=== PATIENT | female | born 1965 | race Caucasian/White ===

== ENCOUNTER 2024-04-20 09:16 | Outpatient (RCR) | payer OTHER, MEDICAID, SELFPAY ==
[2024-04-20 09:50] VITALS: BP 156/69
[2024-04-20] MEDS: RECLAST 100 IV (09:53)
== END 2024-04-21 09:39 | disposition home or self-care (01) ==
LOC: OID 09:16
PROVIDERS: ATTENDING PHYSICIAN Internal Medicine Endocrinology, Diabetes & Metabolism; FAMILY PHYSICIAN Family Medicine
DX: M81.0 Age-related osteoporosis without current pathological fracture (principal)
CPT/HCPCS: 96365; J3489

== ENCOUNTER 2024-06-18 14:34 | Inpatient (IN) | payer OTHER, MEDICAID, SELFPAY ==
[2024-06-10 20:13] VITALS: BP 169/73
[2024-06-10 20:46] LABS: % Basophils 0.3 % (0-2); % Eosinophils 0.7 % (0-6); % Immature Granulocytes 0.4 % (0-0.5); % Lymphocytes 48.8 % (20.5-51.1); % Monocytes 8.6 % (1.7-9.3); % Neutrophils 41.2 % (42.2-75.2); Absolute Eosinophils 0.1 10^3/uL (0-0.7); Absolute Lymphocytes 3.7 10^3/uL (1.2-3.4); Absolute Monocytes 0.7 10^3/uL (0.1-0.6); Absolute Neutrophils 3.1 10^3/uL (1.4-6.5); Hematocrit 29.7 % (37.0-47.0); Hemoglobin 9.9 g/dL (12.0-16.0); Mean Corp Hgb Conc. 33.3 g/dL (33.0-37.0); Mean Corpuscular Hgb 29.2 pg (27.0-31.0); Mean Corpuscular Volume 87.6 fL (81.0-99.0); Mean Platelet Volume 10.7 fL (7.4-10.4); Nucleated Red Blood Cells % 0 %; Platelet Count 117 10^3/uL (130-400); Red Blood Cell Count 3.39 10^6/uL (4.20-5.40); Red Cell Dist. Width 13.7 % (11.5-14.5); White Blood Cell Count 7.6 10^3/uL (4.8-10.8)
[2024-06-10 20:56] LABS: COVID-19 Antigen Positive (Negative)
--- NOTE | 2024-06-10 21:07 | ED.GENMED ---
History of Present Illness
General
Chief Complaint: Cold/Flu/URI Symptoms
Source: family ([id number])
Exam Limitations: other (MR, Cerebral palsey)
Time Seen by Provider: 06/10/24 20:54
History of Present Illness
History of Present Illness:
This is a 59 year old female that is brought in by her [id number]. States that she had diagnosis of COVID on Saturday. States that she keeps falling and has fallen twice today. States that she can't do steps and that her balance is off.
Qnswso-wc-gng states that she and her are both sick and they can't take care of her. States that she had a fever but they have been giving her Cough and cold. Denies any chills, chest pain, SOB, abd pain, nausea, vomiting, diarrhea,
headache, dizziness, urinary burning.
Past History
Past History
ED Past Medical History: GERD, HTN, Hypercholesterolemia, IDDM, Seizures, Other (CKD 3, microalbuminuria,, Cerebral palsy, Pneumothorax, Interpretively blind, Mentally challenged, Neuropathy, Anemia, Vit D def, ) and Other (Intellectual disability
IQ 50-70)
ED Past Surgical History: Appendectomy and Other (Cataracts, ); Negative Cardiac
Social History
Tobacco: Non-smoker
Alcohol: None
Drug: None
Personal: Single
Living: with family (Brother and pjzcdr-[id number])
Employment: Not employed
Family History
Family History: Diabetes
Review of Systems
Review of Systems
All Other Systems: ROS reviewed and negative except as documented in HPI and ROS
Constitutional: Reports fever; Denies chills
EENT: Reports no symptoms
Respiratory: Reports no symptoms; Denies cough or trouble breathing
Cardiac: Reports no symptoms; Denies chest pain
ABD/GI: Reports no symptoms; Denies abdominal pain, nausea, vomiting or diarrhea
: Reports incontinence; Denies dysuria, frequency or urgency
Musculoskeletal: Reports no symptoms
Skin: Reports no symptoms
Neurological: Reports other (Frequency falls); Denies dizzy or headache
Psychiatric: Reports no symptoms
Phy Exam
General Physical Exam
General Presentation: no apparent distress
General age: appears stated age
General Skin: warm and dry
General Habitus: normal
General Mental: usual mental status
General Hydration: appears well hydrated
ENT Exam
ENT Exam: TM's normal, pharynx normal and neck supple
Cardiovascular Exam
Cardiovascular Exam: regular rate/rhythm and normal peripheral pulses
Pulmonary Exam
Pulmonary Exam: lungs clear, no respiratory distress, no rales, chest non tender, no crackles, no rhonchi, no wheezing and no cough
Gastrointestinal Exam
Gastrointestinal Exam: normal bowel sounds, non tender, soft, no organomegaly, no pulsatile mass and non distended
Musculoskeletal Exam
Musculoskeletal Exam: full ROM and edema (+1 pitting edema of lower legs)
Skin Exam
Skin Exam: normal color, warm/dry, no rash and no petechia
Psychiatric Exam
Psychiatric Exam: normal mood/affect
Course
Orders/Labs/Results
Orders:
Orders
06/10/24 Dinner
Regular
At Your Request: Limited Participation
06/10/24 20:31
COVID-19 Antigen Urgent
Source: Nasal Swab
Complete Blood Count/With Diff Urgent
Comprehensive Metabolic Panel Urgent
06/10/24 21:09
Urinalysis Reflex To Culture Urgent
Date Specimen was Collected: 06/10/24
Time Specimen was Collected: 21:08
06/10/24 21:20
0.9% Sodium Chloride 1000 ml [Nss] 1,000 ml IV BOLUS
06/10/24 21:36
Admit/Transfer Patient As Directed
Co-Sign Provider:
Level of Care: Observation services
Assign to:: Medical/Surgical
Physician / Group: veldanda
Diagnosis: covid
Code Status As Directed
Resuscitation Status: Full Code
PRN Pain Medication Management As Directed
May give lesser potent ordered pain med per pt: Yes
preference::
Protocol:: Medication orders for pain may be administered in a
manner that supports deferring to patient preference
when the pt is:
- Requesting an ordered lesser potent pain medication.
Least to most potent pain medications are defined
as: acetaminophen < NSAID < tramadol < opioids
(morphine, oxycodone, hydromorphone).
- Requesting a lesser dose of the same medication IF
ORDERED.
- Requesting a less intrusive route of administration
if both routes are prescribed by the provider (PO <
IV).
06/10/24 22:00
Flush (0.9% Sodium Chloride) [Flush (Nss)] See Dose Instructions IV PER PROTOCOL
06/10/24 22:13
Acetaminophen [Tylenol] 650 mg PO Q4HPRN PRN
Clobazam (Non-Form) [Onfi] 10 mg PO HS
Dextrose 50%-Water [Dextrose 50% Syringe] 12.5 grams IV [id number] PRN
Glucagon [GlucaGen] 1 mg IM PRN PRN
Rosuvastatin Calcium [Crestor] 20 mg PO HS
06/10/24 22:13
Activity As Directed
Activity Level: As Tolerated
Bedside Glucose Monitoring As Directed
Frequency: AC&HS
Additional Instructions:: Change to q6h if pt on TPN, tube feeding or not eating
Orthostatic Vital Signs As Directed
Orthostatic VS Frequency: Daily
Vital Signs As Directed
Frequency: Per unit guidelines
DX Deep Vein Thrombosis Video Routine
06/11/24 06:00
Complete Blood Count/With Diff IN AM
Comprehensive Metabolic Panel IN AM
Glycohemoglobin (HgbA1c) IN AM
06/11/24 07:30
Insulin Aspart Corrective Low [Novolog Flexpen-Low Resistance] See Protocol SC AC
06/11/24 08:00
Carbamazepine Extended Release [Tegretol Xr (Extended Release)] 300 mg PO BID
Cholecalciferol (Vitamin D3) [VITAMIN D3 (cholecalciferol)] 50 mcg PO DAILY
Cyanocobalamin [Vitamin B-12] 1,000 mcg PO DAILY
Divalproex Delayed Rel. 12 Hr [Depakote (12 Hr Release)] 500 mg PO BID
Heparin 5,000 units SC Q12
Pantoprazole [Protonix] 40 mg PO DAILY
Ramipril [Altace] 2.5 mg PO DAILY
Abnormal Lab Results
06/10/24
20:31
RBC 3.39 L 10^6/uL
(4.20-5.40)
Hgb 9.9 L g/dL
(12.0-16.0)
Hct 29.7 L %
(37.0-47.0)
Plt Count 117 L 10^3/uL
(130-400)
MPV 10.7 H fL
(7.4-10.4)
Absolute Lymphs (auto) 3.7 H 10^3/uL
(1.2-3.4)
Absolute Monos (auto) 0.7 H 10^3/uL
(0.1-0.6)
Neutrophils % 41.2 L %
(42.2-75.2)
Sodium 131 L mmol/L
(135-145)
BUN 25 H mg/dl
(7-17)
Creatinine 1.2 H mg/dL
(0.6-1.0)
Albumin 3.1 L g/dl
(3.5-5.0)
SARS-CoV-2 Antigen Positive A
(Negative)
06/10/24 20:31
06/10/24 20:31
H/H slightly low. Plt low. COVID positive. Sodium slightly low, Dehydration. Urine negative for infection.
Vital Signs
Initial and Last Documented VS:
Initial Vital Signs
Temp Pulse Resp BP Pulse Ox
97.3 F 70 20 169/73 98
06/10/24 20:13 06/10/24 20:13 06/10/24 20:13 06/10/24 20:13 06/10/24 20:13
Last Documented Vital Signs
Temp Pulse Resp BP Pulse Ox
97.3 F 84 18 192/51 100
06/10/24 23:00 06/10/24 23:00 06/10/24 23:00 06/10/24 23:00 06/10/24 23:00
MDM/Problems Addressed
Differential Diagnosis Includes:
COVID, Weakness, UTI
MDM/Problems Addressed:
This is a 59 year old female that comes in by her juejgp-tx-pjz. Inwdks-sb-krb states that the patient was diagnosed with COVID on Saturday. States that she has fallen twice and that the one time she fell out of her chair into their sofa. States that
she is unable to do steps and stays down stairs by herself. States that she can't take care of her any more.
Will check labs and admit. Hospitalist notified.
Chronic conditions affecting care:
Cerebral palsy, MR
Acute Exacerbation and/or Progression of Chronic Illness:
MR, Cerebral palsy.
*Pulse Oximetry
Patient hypoxic: no
*EKG
Interpreted by ED Provider?: NA
Rate: EKG- N/A
*Facility Maintenance Manager Interpretation
Rate: Facility Maintenance Manager- N/A
*Critical Care Note
Total Time (30-74mins, 75-104mins- exclusive of procedures): Not Applicable
ED Attending Note
-
Portions of this chart may have been created with voice recognition software.� Occasional wrong word or��sound alike� substitutions may have occurred due to the inherent limitations of voice recognition software.
Discharge Plan
Departure
Patient Disposition: Admit
Date of Disposition: 06/10/24
Time of Disposition: 21:19
Admit to: Med/Surg
Presentation/result/management discussed w/ accepting MD/DO: Hospitalist
Patient with high blood pressure during this ER visit?: Yes
Condition: Good
Covid-19: Confirmed COVID-19
Discharge Problem:
Frequent falls, COVID, Weakness
Interventions
Interventions:
*Risk Screen - Suicide Last Done: 06/10/24 22:18
*General Assessment Last Done: 06/10/24 21:02
*Neglect/Abuse Screening Last Done: 06/10/24 21:02
ED- Fall Risk Assessment Last Done: 06/10/24 21:02
*ED COVID-19 Vaccine History Last Done: 06/10/24 21:02
*Nursing Disposition Last Done: 06/10/24 21:55
ED- Pulmonary Assessment Last Done: 06/10/24 21:02
Discharge Date and Time
Discharge Date/Time: 06/10/24 22:08
[2024-06-10 21:11] LABS: ALT (SGPT) 16 U/L (0-35); AST (SGOT) 35 U/L (14-36); Albumin 3.1 g/dl (3.5-5.0); Alkaline Phosphatase 125 U/L (38-126); Blood Urea Nitrogen 25 mg/dl (7-17); Calcium 8.4 mg/dl (8.4-10.2); Carbon Dioxide 26 mmol/L (22-30); Chloride 100 mmol/L (98-107); Glucose 84 mg/dl (70-99); Potassium 4.7 mmol/L (3.5-5.1); Sodium 131 mmol/L (135-145); Total Bilirubin 0.3 mg/dl (0.2-1.3); Total Protein 6.5 g/dl (6.3-8.2); eGFR 52.14
[2024-06-10 21:26] LABS: Urine Albumin Negative (Neg - Trace); Urine Bilirubin Negative (Negative); Urine Character Clear (Clear); Urine Color Yellow; Urine Glucose Negative (Negative); Urine Ketone Negative (Negative); Urine Leukocyte Negative (Negative); Urine Nitrite Negative (Negative); Urine Occult Blood Negative (Negative); Urine Urobilinogen 1+ (Neg - 1+)
[2024-06-10] MEDS: NSS 1000 IV (21:26)
--- NOTE | 2024-06-10 21:42 | HPS.HSE ---
Family Physician
-
Family Physician: Marcelino Kuhn
Chief Complaint
-
fever, falls
History of Present Illness
59-year-old female past medical history of GERD, hypertension, hypercholesteremia, diabetes, seizures, CKD stage III, cerebral palsy presenting with ifrmjz-pb-oin for multiple falls since patient was diagnosed with COVID on Saturday. Her balance is
off and she feels dizzy. Patient has been having sore throat, runny nose and cough and fever for the past 2 days. Tzbnhv-xf-mfa states that she and her are also positive for COVID and they had symptoms a few days prior to the patient and
they cannot take care of her. Patient has had fever but no chills, chest pain, shortness of breath, abdominal pain, nausea vomiting or diarrhea or headache or dizziness or urinary symptoms.
Patient does not smoke or drink alcohol or use drugs.
Medical History
Past Medical History
Past Medical History: Reports Other (GERD, hypertension, hypercholesteremia, diabetes, seizures, CKD stage III, cerebral palsy )
Past Surgical History: Reports None
Social History
Tobacco: Non-smoker
Alcohol: None
Drug: None
Family History
Family History: Not pertinent
Allergies / Home Medications
Allergies reflects when Allergies were last updated in [facility].
Home Medications with original date entered in [facility]
Allergy/Medication List:
Allergies
Allergy/AdvReac Type Severity Reaction Status Date / Time
phenobarbital Allergy Severe Anaphylaxis Verified 06/10/24 20:13
Home Medications
cholecalciferol (vitamin D3) 50 mcg (2,000 unit) tablet 2,000 units PO DAILY Supplement 02/06/20
omeprazole 20 mg capsule,delayed release 20 mg PO DAILY Gastrointestinal Issue 02/06/20
insulin degludec 100 unit/mL (3 mL) subcutaneous pen (Tresiba FlexTouch U-100 insulin) 6 unit SQ HS Diabetes 01/16/22
metformin 500 mg tablet,extended release 24 hr 1,000 mg PO QPM Diabetes 01/16/22
rosuvastatin 20 mg tablet 20 mg PO HS High Cholesterol 01/16/22
cyanocobalamin (vitamin B-12) 1,000 mcg tablet 1,000 mcg PO DAILY Supplement 04/27/23
clobazam 10 mg tablet (Onfi) 10 mg PO HS 04/20/24
divalproex 500 mg tablet,delayed release (Depakote) 500 mg PO BID 04/20/24
insulin lispro 100 unit/mL subcutaneous pen 1 sliding scale dose SC DIRECTED 04/20/24
carbamazepine 300 mg capsule,extended release [id number] 300 mg PO BID 06/10/24
ramipril 2.5 mg capsule 2.5 mg PO DAILY 06/10/24
Review of Systems
-
History Source: Patient
A 12 point ROS was completed and negative except as noted: Yes
Constitutional: Reports No Symptoms
EENT: Reports See HPI
Respiratory: Reports See HPI
Cardiac: Reports No Symptoms
Abdomen/GI: Reports No Symptoms
: Reports No Symptoms
Musculoskeletal: Reports No Symptoms
Skin: Reports No Symptoms
Neurological: Reports See HPI
Endocrine: Reports No Symptoms
Hematologic/Lymphatic: Reports No Symptoms
Psych: Reports No Symptoms
Physical Exam
Vital Signs
Vital Signs
Temp Pulse Resp BP Pulse Ox
97.3 F 70 20 169/73 97
06/10/24 20:13 06/10/24 20:13 06/10/24 20:13 06/10/24 20:13 06/10/24 21:02
Physical Exam
General: Well Developed, Well Nourished and No Apparent Distress
HEENT: NormoCephalic, Moist mucous membranes and Atraumatic
Respiratory: Clear
Cardiac: S1/S2 and Regular Rhythm; No Murmur or Rub
GI: Soft, Non Tender, Non Distended and Normal Bowel Sounds; No Organomegaly
Rectal: Deferred by Provider
Musculoskeletal: No Clubbing, No Cyanosis and No Edema
Skin: No Rash
Neuro: Nonfocal/grossly intact
Laboratory Results
-
06/10/24 20:31
06/10/24 20:31
Laboratory Results
Total Bilirubin 0.3 mg/dl (0.2-1.3) 06/10/24 20:31
AST 35 U/L (14-36) 06/10/24 20:31
ALT 16 U/L (0-35) 06/10/24 20:31
Alkaline Phosphatase 125 U/L (38-126) 06/10/24 20:31
Data Reviewed
-
Lab Data: Labs Reviewed by me
Old Records: Reviewed
Impression/Plan
-
IMPRESSION:
PLAN:
# Ambulatory dysfunction/falls/dizziness secondary to COVID
-Patient not hypoxic
-IV fluids given
-Check orthostatic vitals
-PT/OT
# Mild hyponatremia secondary to decreased p.o. intake
-Monitor with IV fluids given
Progressive dementia
Cerebral palsy
Seizure history
-Continue Depakote, carbamazepine, clobazam
Essential hypertension
-Continue ramipril
Hypercholesterolemia
-Continue statin
GERD
-Continue omeprazole
Type 2 diabetes
-Hold metformin
-Insulin sliding scale
-Continue Tresiba 6 units
CKD 3
-Renal function at baseline
Chronic anemia
-Hemoglobin stable
Full code
DVT prophylaxis�heparin
Regular diet
[2024-06-10 22:55] LABS: Glucose - Point of Care 84 mg/dl (70-99)
[2024-06-10] MEDS: LANTUS 0.06 UNITS SC (22:55)
[2024-06-10 22:58] VITALS: BMI 27.0
[2024-06-10 23:00] VITALS: BP 192/51
[2024-06-10] MEDS: ONFI 10 MG PO (23:24)
[2024-06-10] MEDS: CRESTOR 20 MG PO (23:24)
--- NOTE | 2024-06-10 23:30 | PTCARENOTE ---
Pt received from ED via WC. Pivoted to bed w/assist without incident. Pt's JIL Graham answered admission questions. Plan of care discussed, oriented to surroundings. Full physical assessment documented (refer to worklist). Bed alarm active for
safety, Medsitter to be obtained. Respiratory illness precautions maintained. LAC INT partially removed by patient, removed at this time. OOB w/assist x1/RW to BR. Call gomez within reach, plan of care ongoing.
[2024-06-11 03:30] VITALS: BP 137/61
[2024-06-11 07:15] VITALS: BP 169/81
[2024-06-11 08:11] LABS: Glucose - Point of Care 141 mg/dl (70-99)
[2024-06-11] MEDS: HEPARIN 5000 UNITS SC ×2 (10:08→21:14)
[2024-06-11] MEDS: NOVOLOG FLEXPEN-LOW RESISTANCE SC (10:11)
[2024-06-11] MEDS: VITAMIN B-12 1000 MCG PO (10:12)
[2024-06-11] MEDS: PROTONIX 40 MG PO (10:12)
[2024-06-11] MEDS: VITAMIN D3 (cholecalciferol) 50 MCG PO (10:12)
[2024-06-11] MEDS: ALTACE 2.5 MG PO (10:12)
[2024-06-11] MEDS: DEPAKOTE (12 HR RELEASE) 500 MG PO ×2 (10:12→21:15)
[2024-06-11] MEDS: TEGRETOL XR (EXTENDED RELEASE) 300 MG PO ×2 (10:13→21:13)
[2024-06-11 11:21] LABS: ALT (SGPT) 17 U/L (0-35); AST (SGOT) 38 U/L (14-36); Albumin 3.3 g/dl (3.5-5.0); Alkaline Phosphatase 148 U/L (38-126); Blood Urea Nitrogen 22 mg/dl (7-17); Calcium 8.4 mg/dl (8.4-10.2); Carbon Dioxide 26 mmol/L (22-30); Chloride 101 mmol/L (98-107); Estimated Creatinine Clearance 48 ml/min; Glucose 220 mg/dl (70-99); Potassium 4.8 mmol/L (3.5-5.1); Sodium 133 mmol/L (135-145); Total Bilirubin 0.4 mg/dl (0.2-1.3); Total Protein 6.9 g/dl (6.3-8.2); eGFR > 60.00
[2024-06-11 11:34] LABS: % Basophils 0.3 % (0-2); % Eosinophils 0.3 % (0-6); % Immature Granulocytes 0.3 % (0-0.5); % Lymphocytes 37.5 % (20.5-51.1); % Monocytes 6.9 % (1.7-9.3); % Neutrophils 54.7 % (42.2-75.2); Absolute Lymphocytes 2.2 10^3/uL (1.2-3.4); Absolute Monocytes 0.4 10^3/uL (0.1-0.6); Absolute Neutrophils 3.2 10^3/uL (1.4-6.5); Hematocrit 33.2 % (37.0-47.0); Hemoglobin 11.3 g/dL (12.0-16.0); Mean Corpuscular Hgb 29.8 pg (27.0-31.0); Mean Corpuscular Volume 87.6 fL (81.0-99.0); Mean Platelet Volume 11.5 fL (7.4-10.4); Nucleated Red Blood Cells % 0 %; Platelet Count 107 10^3/uL (130-400); Red Blood Cell Count 3.79 10^6/uL (4.20-5.40); Red Cell Dist. Width 13.6 % (11.5-14.5); White Blood Cell Count 5.9 10^3/uL (4.8-10.8)
[2024-06-11 11:56] LABS: Glucose - Point of Care 242 mg/dl (70-99)
[2024-06-11 12:23] LABS: Glycohemoglobin (HgbA1c) 5.9 % (4.0-5.6)
[2024-06-11] MEDS: NOVOLOG FLEXPEN-LOW RESISTANCE 2 UNITS SC ×2 (14:01→17:40)
[2024-06-11 15:15] VITALS: BP 158/80
[2024-06-11 15:45] VITALS: BP 169/86; BP 195/94; PULSE 82; O2SAT 99
--- NOTE | 2024-06-11 15:52 | CM ---
Initial assessment completed with brother. Patient has lived with her brother and pavkpp-wi-nua for approximately the past 10-15 years. They live in a 2 story home with basement w 2 steps to enter. Patient can no longer navigate the stairs to the
2nd floor. The dining room on the 1st floor has been transformed into a bedroom for patient. There is a powder room on the 1st floor. Patient has a RW, Quad cane, SC. No in home services. She uses the quad cane. Patient has difficulty with her
vision and frequently bumps into things and has fallen frequently. She requires assistance with ADL's and more times than not misses the toilet and urinates and defecates on the floor next to the toilet. Patient has never has any psychiatric
hospitalizations. Pharmacy is [facility] in [place] and PCP is Dr. Marcelino Kuhn. Family would like patient to go to [facility] after discharge. They definitely do not want referrals to [facility]. Will need Order for Therapy evals
and will need insurance auth. Referral to [place] to be forwarded.
[2024-06-11 16:56] LABS: Glucose - Point of Care 342 mg/dl (70-99)
--- NOTE | 2024-06-11 17:06 | W.PN.HOSP.TC ---
Today's Communication/Plan
-
Physical therapy evaluation
Supportive care per
Discharge planning
Assessment / Plan
Assessment / Plan
Impression:
Admitted for ambulatory dysfunction, falls, reported dizziness secondary to COVID infection.
COVID infection mild, with no evidence of sepsis or hypoxia.
Hyponatremia sodium 131
Conditions prior to admission.
Cerebral palsy with intellectual disability
Seizure disorder
Essential hypertension.
Chronic kidney disease stage IIIb.
IDDM.
Hyperlipidemia
Plan:
Failure to thrive due to acute COVID infection
Mild COVID diagnosed on 06/08.
No clinical evidence of sepsis or hypoxia
No clear indication for antiviral therapy at this point.
Continue supportive care
Mild hyponatremia secondary to dehydration due to decreased p.o. intake
Sodium improves 131�133
Monitor oral intake
Wean off IV fluids if sufficient
Follow BMP
Cerebral palsy
Seizure history
-Continue Depakote, carbamazepine, clobazam
Essential hypertension
-Continue ramipril
Hypercholesterolemia
-Continue statin
GERD
-Continue omeprazole
Type 2 diabetes
-Hold metformin
-Insulin sliding scale
-Continue Tresiba 6 units
CKD 3
-Renal function at baseline
Chronic anemia
-Hemoglobin stable
Full code
DVT prophylaxis�heparin
Regular diet
Anticipated Discharge: 24 - 48 hours
Subjective/Interval History
-
Date of Service: June 11, 2024
Objective Data
-
Labs:
Laboratory Results
06/11/24 06/11/24 06/11/24
06:04 06:05 10:37
WBC Cancelled 5.9
Hgb Cancelled 11.3 L
Hct Cancelled 33.2 L
Plt Count Cancelled 107 L
Sodium Cancelled 133 L
Potassium Cancelled 4.8
Chloride Cancelled 101
Carbon Dioxide Cancelled 26
BUN Cancelled 22 H
Creatinine Cancelled 1.0
Glucose Cancelled 220 H
Calcium Cancelled 8.4
Total Bilirubin Cancelled 0.4
AST Cancelled 38 H
ALT Cancelled 17
Alkaline Phosphatase Cancelled 148 H
Vital Signs:
Vital Signs
Temp Pulse Resp BP Pulse Ox
97.7 F 79 18 158/80 99
06/11/24 15:15 06/11/24 15:15 06/11/24 15:15 06/11/24 15:15 06/11/24 15:15
I&O
06/10/24 06/11/24 06/12/24
06:59 06:59 06:59
Intake Total 120 / 120 600 / 600
Output Total 300 / 300
Balance -180 / -180 600 / 600
Physical Exam
-
General: Well Developed and No Apparent Distress
HEENT: Normocephalic, Atraumatic and Moist Mucous Membranes
Respiratory: Clear to Auscultation
Cardiac: Regular Rhythm and S1/S2; Negative Murmur, Rub or Gallop
GI: Soft, Nontender, Nondistended and Normal Bowel Sounds; Negative Organomegaly
Rectal: Deferred by Provider
Musculoskeletal: No Clubbing, No Cyanosis and No Edema
Skin: Negative Rash
Neuro: Nonfocal/Grossly Intact
[2024-06-11 18:34] LABS: Hepatitis C Antibody Negative (Negative)
[2024-06-11 21:39] LABS: Glucose - Point of Care 160 mg/dl (70-99)
[2024-06-11] MEDS: CRESTOR 20 MG PO (21:39)
[2024-06-11] MEDS: ONFI 10 MG PO (21:39)
[2024-06-11] MEDS: LANTUS 0.06 UNITS SC (21:39)
[2024-06-11 23:57] VITALS: BP 145/78
[2024-06-12 07:15] VITALS: BP 188/80
[2024-06-12 08:14] LABS: Glucose - Point of Care 114 mg/dl (70-99)
[2024-06-12] MEDS: NOVOLOG FLEXPEN-LOW RESISTANCE SC (08:19)
[2024-06-12 08:28] LABS: Blood Urea Nitrogen 25 mg/dl (7-17); Calcium 8.5 mg/dl (8.4-10.2); Carbon Dioxide 24 mmol/L (22-30); Chloride 102 mmol/L (98-107); Estimated Creatinine Clearance 48 ml/min; Glucose 117 mg/dl (70-99); Potassium 4.6 mmol/L (3.5-5.1); Sodium 133 mmol/L (135-145); eGFR > 60.00
[2024-06-12] MEDS: HEPARIN 5000 UNITS SC ×2 (08:43→20:53)
[2024-06-12] MEDS: VITAMIN D3 (cholecalciferol) 50 MCG PO (08:44)
[2024-06-12] MEDS: PROTONIX 40 MG PO (08:44)
[2024-06-12] MEDS: ALTACE 2.5 MG PO (08:44)
[2024-06-12] MEDS: DEPAKOTE (12 HR RELEASE) 500 MG PO ×2 (08:44→20:54)
[2024-06-12] MEDS: TEGRETOL XR (EXTENDED RELEASE) 300 MG PO ×2 (08:44→20:54)
[2024-06-12] MEDS: VITAMIN B-12 1000 MCG PO (08:44)
[2024-06-12 11:59] LABS: Glucose - Point of Care 257 mg/dl (70-99)
[2024-06-12] MEDS: NOVOLOG FLEXPEN-LOW RESISTANCE 3 UNITS SC (12:30)
[2024-06-12 13:54] VITALS: BP 122/88; BP 127/80; BP 137/71; PULSE 102; PULSE 73; PULSE 80
--- NOTE | 2024-06-12 14:23 | CON.MD ---
Consultation - Medical
-
patient seen chart reviewed . spoke with nursing and with cm. the patient is a 59 year old woman with cerebral palsy and intellectual disability who was brought to er with complaint of falling. she has hx of difficulty w gait and balance. she
has fx pelvis in the past. she was dx w dashaid this week. she is cared for by her brother lisbeth and his clara. brant was very pleasant and told me some about her family. she has lived for a few years with clara and lisbeth. she was in a bedroom
upstairs but was having difficulty navigating the stairs and the family moved her room to the first floor. according to cm and the er note, family feels they can no longer care for her and may be seeking parts counterman placement. cm tells me she has
already been accepted for [facility] [place] pending level two assessment and other paper work. the patient reports that she is happy. sleep and appetite are okay. she said she likes to eat. i asked her if she ever heard voices that
were not there and she said no. she also has not had thoughts of hurting herself. she likes to watch TV and color. she also had a deck of cards on her tray. she offered no complaints and did not seem unhappy at all.
past psych hx no hx of psychiatric admissions. this was verified by cm who spoke with family.
past medical hx cerebral palsy patient w hx frequent falls including pelvic fx. she has hx of gait disturbance likely further impacted by issues with visual interpretation. patient w hx dm including retinopathy, gerd sz hld htn (bp is elevated
at 118/80 today mild anemia (hgb 11.3) overweight hx pneumothorax sodium mildy low on admit 133 bun 25 glu 117 this am 257 depakote level 65 tegretol level 10.7 (both for seizure disorder)
fh non contributory
social hx patient told me she has four sibs lisbeth mcdowell and vanessa. she was not oriented to place time or season. speech w some impediment. patient answers were appropriate generally ...short and to the point for the most part. no overt
psychosis mood was good affect appropriate intellectual disability insight lacking judgment fair no suicidal thoughts no thoughts of hurting others
dx intellectual disability
recommendations: patient doing reasonably well. she is exhibiting neither affective or psychotic sx. she is pleasant and cooperative. she takes no psychotropic meds and i see no need for psych meds. she is recommended to snf by pt to work n gait
and balance which would seem appropriate. psych will sign off
[2024-06-12 15:10] VITALS: BP 143/77
--- NOTE | 2024-06-12 15:12 | W.PN.HOSP.TC ---
Today's Communication/Plan
-
Placement
Supportive care
Assessment / Plan
Assessment / Plan
Impression:
Admitted for ambulatory dysfunction, falls, reported dizziness secondary to COVID infection.
COVID infection mild, with no evidence of sepsis or hypoxia.
Hyponatremia sodium 131
Conditions prior to admission.
Cerebral palsy with intellectual disability
Seizure disorder
Essential hypertension.
Chronic kidney disease stage IIIb.
IDDM.
Hyperlipidemia
Plan:
Failure to thrive due to acute COVID infection
Mild COVID diagnosed on 06/08.
No clinical evidence of sepsis or hypoxia
No clear indication for antiviral therapy at this point.
Continue supportive care
Mild hyponatremia secondary to dehydration due to decreased p.o. intake
Sodium improves 131�133
Monitor oral intake
Wean off IV fluids if sufficient
Follow BMP
Cerebral palsy
Seizure history
-Continue Depakote, carbamazepine, clobazam
Essential hypertension
-Continue ramipril
Hypercholesterolemia
-Continue statin
GERD
-Continue omeprazole
Type 2 diabetes
-Continue
-Insulin sliding scale
-Continue Tresiba 6 units
CKD 3
-Renal function at baseline
Chronic anemia
-Hemoglobin stable
Full code
DVT prophylaxis�heparin
Regular diet
Disposition: Physical therapy assessment recommend [facility] rehab with likely transition to long-term care. Psychiatry evaluation for PASRR level II
Anticipated Discharge: > 48 hours
Subjective/Interval History
-
Date of Service: June 12, 2024
Objective Data
-
Labs:
Laboratory Results
06/12/24
07:13
Sodium 133 L
Potassium 4.6
Chloride 102
Carbon Dioxide 24
BUN 25 H
Creatinine 1.0
Glucose 117 H
Calcium 8.5
Vital Signs:
Vital Signs
Temp Pulse Resp BP Pulse Ox
96.3 F L 64 20 188/80 100
06/12/24 07:15 06/12/24 08:44 06/12/24 07:15 06/12/24 08:44 06/12/24 12:59
I&O
06/11/24 06/12/24 06/13/24
06:59 06:59 06:59
Intake Total 120 / 120 840 / 840
Output Total 300 / 300
Balance -180 / -180 840 / 840
Physical Exam
-
General: Well Developed and No Apparent Distress
HEENT: Normocephalic, Atraumatic and Moist Mucous Membranes
Respiratory: Clear to Auscultation
Cardiac: Regular Rhythm and S1/S2; Negative Murmur, Rub or Gallop
GI: Soft, Nontender, Nondistended and Normal Bowel Sounds; Negative Organomegaly
Rectal: Deferred by Provider
Musculoskeletal: No Clubbing, No Cyanosis and No Edema
Skin: Negative Rash
Neuro: Nonfocal/Grossly Intact
--- NOTE | 2024-06-12 16:36 | CM ---
Patient has been accepted to [facility]. Contact is Max @ [phone]. Insurance requires an auth and PASRR triggered a level II. Insurance auth forwarded through [employer]. Documents faxed to [facility]. Certification # is [id number]. PASRR and
documents have been faxed to [facility] at [phone].
[2024-06-12 16:56] LABS: Glucose - Point of Care 379 mg/dl (70-99)
[2024-06-12] MEDS: NOVOLOG FLEXPEN-LOW RESISTANCE 5 UNITS SC (17:28)
[2024-06-12] MEDS: GLUCOPHAGE XR EXTENDED RELEASE 1000 MG PO (17:30)
[2024-06-12] MEDS: CRESTOR 20 MG PO (20:54)
[2024-06-12] MEDS: ONFI 10 MG PO (20:55)
[2024-06-12 21:49] LABS: Glucose - Point of Care 203 mg/dl (70-99)
[2024-06-12] MEDS: LANTUS 0.06 UNITS SC (22:15)
[2024-06-12 23:16] VITALS: BP 158/75
--- NOTE | 2024-06-13 07:17 | W.PN.HOSP.TC ---
Addendum entered and electronically signed by Enrique Deutsch MD 06/13/24 13:58:
Patient hyperglycemic, likely due to coronavirus infection.
Increase Lantus from 6 units to 8 units at bedtime, start Premeal insulin 3 units AC 3 times daily.
Original Note:
Today's Communication/Plan
-
Awaiting placement
Assessment / Plan
Assessment / Plan
Impression:
Admitted for ambulatory dysfunction, falls, reported dizziness secondary to COVID infection.
COVID infection mild, with no evidence of sepsis or hypoxia.
Hyponatremia sodium 131
Conditions prior to admission.
Cerebral palsy with intellectual disability
Seizure disorder
Essential hypertension.
Chronic kidney disease stage IIIb.
IDDM.
Hyperlipidemia
Plan:
Failure to thrive due to acute COVID infection
Mild COVID diagnosed on 06/08.
No clinical evidence of sepsis or hypoxia
No clear indication for antiviral therapy at this point.
Continue supportive care, isolate through 06/17
Mild hyponatremia secondary to dehydration due to decreased p.o. intake
Sodium improves 131�133
Monitor oral intake
Wean off IV fluids if sufficient
Follow BMP
Cerebral palsy
Seizure history
-Continue Depakote, carbamazepine, clobazam
Essential hypertension
-Continue ramipril
Hypercholesterolemia
-Continue statin
GERD
-Continue omeprazole
Type 2 diabetes
-Continue
-Insulin sliding scale
-Continue Tresiba 6 units
CKD 3
-Renal function at baseline
Chronic anemia
-Hemoglobin stable
DVT prophylaxis�SC lovenox
Full Code
Disposition: Physical therapy assessment recommend group home rehab with likely transition to long-term care. Psychiatry evaluation for PASRR level II
Total time spent to see the patient on the floor, examine the patient, review data and lab results, discuss treatment plan with patient, nursing staff around 35 minutes.
Physical Exam
General: No acute distress
HEENT: Normocephalic, Atraumatic, EOMI, MMM
Respiratory: Clear to Auscultation bilaterally
Cardiac: Normal S1/S2, Regular Rate and Rhythm
GI: Soft, Nontender, Nondistended, Normal Bowel Sounds
Extremities: No Clubbing, Cyanosis, or Edema
Neuro: Nonfocal/Grossly Intact
Anticipated Discharge: Within 24 hours
Subjective/Interval History
-
Date of Service: June 13, 2024
+Cough/SOB. No fever, no vomiting.
Objective Data
-
Vital Signs:
Vital Signs
Temp Pulse Resp BP Pulse Ox
97.9 F 69 17 158/75 99
06/12/24 23:16 06/12/24 23:16 06/12/24 23:16 06/12/24 23:16 06/13/24 03:23
I&O
06/12/24 06/13/24 06/14/24
06:59 06:59 06:59
Intake Total 840 / 840 1540 / 1540
Balance 840 / 840 1540 / 1540
[2024-06-13 08:37] LABS: Glucose - Point of Care 189 mg/dl (70-99)
[2024-06-13 08:43] VITALS: BP 168/86
[2024-06-13] MEDS: PROTONIX 40 MG PO (09:35)
[2024-06-13] MEDS: NOVOLOG FLEXPEN-LOW RESISTANCE 1 UNITS SC (09:35)
[2024-06-13] MEDS: ALTACE 5 MG PO (09:35)
[2024-06-13] MEDS: DEPAKOTE (12 HR RELEASE) 500 MG PO ×2 (09:35→20:51)
[2024-06-13] MEDS: HEPARIN 5000 UNITS SC (09:36)
[2024-06-13] MEDS: VITAMIN B-12 1000 MCG PO (09:36)
[2024-06-13] MEDS: VITAMIN D3 (cholecalciferol) 50 MCG PO (09:36)
[2024-06-13] MEDS: TEGRETOL XR (EXTENDED RELEASE) 300 MG PO ×2 (09:36→20:51)
[2024-06-13 13:25] LABS: Glucose - Point of Care 332 mg/dl (70-99)
[2024-06-13] MEDS: NOVOLOG FLEXPEN-LOW RESISTANCE 4 UNITS SC (13:47)
[2024-06-13 15:25] VITALS: BP 151/76
[2024-06-13 17:28] LABS: Glucose - Point of Care 295 mg/dl (70-99)
[2024-06-13] MEDS: NOVOLOG FLEXPEN 3 UNITS SC (17:42)
[2024-06-13] MEDS: GLUCOPHAGE XR EXTENDED RELEASE 1000 MG PO (17:42)
[2024-06-13] MEDS: LOVENOX 40 MG SC (17:42)
[2024-06-13] MEDS: NOVOLOG FLEXPEN-LOW RESISTANCE 3 UNITS SC (17:43)
[2024-06-13] MEDS: CRESTOR 20 MG PO (20:51)
[2024-06-13] MEDS: LANTUS 0.08 UNITS SC (20:55)
[2024-06-13] MEDS: ONFI 10 MG PO (20:55)
[2024-06-13 21:14] LABS: Glucose - Point of Care 215 mg/dl (70-99)
[2024-06-13 23:02] VITALS: BP 143/77
[2024-06-14 07:15] VITALS: BP 127/68
--- NOTE | 2024-06-14 08:18 | W.PN.HOSP.TC ---
Today's Communication/Plan
-
Awaiting placement
Assessment / Plan
Assessment / Plan
Impression:
Admitted for ambulatory dysfunction, falls, reported dizziness secondary to COVID infection.
COVID infection mild, with no evidence of sepsis or hypoxia.
Hyponatremia sodium 131
Conditions prior to admission.
Cerebral palsy with intellectual disability
Seizure disorder
Essential hypertension.
Chronic kidney disease stage IIIb.
IDDM.
Hyperlipidemia
Plan:
Failure to thrive due to acute COVID infection
Mild COVID diagnosed on 06/08.
No clinical evidence of sepsis or hypoxia
No clear indication for antiviral therapy at this point.
Continue supportive care, isolate through 06/17
Mild hyponatremia secondary to dehydration due to decreased p.o. intake
Sodium improves 131�133
Monitor oral intake
Wean off IV fluids if sufficient
Follow BMP
Type 2 diabetes
-Continue insulin sliding scale
-Increased Lantus from 6 units to 8 units at bedtime, started Premeal insulin 3 units AC 3 times daily
Cerebral palsy
Seizure history
-Continue Depakote, carbamazepine, clobazam
Essential hypertension
-Continue ramipril
Hypercholesterolemia
-Continue statin
GERD
-Continue omeprazole
CKD 3
-Renal function at baseline
Chronic anemia
-Hemoglobin stable
DVT prophylaxis�SC lovenox
Full Code
Disposition: Physical therapy assessment recommend snf rehab with likely transition to long-term care. Psychiatry evaluation for PASRR level II
Total time spent to see the patient on the floor, examine the patient, review data and lab results, discuss treatment plan with patient, nursing staff around 36 minutes.
Physical Exam
General: No acute distress
HEENT: Normocephalic, Atraumatic, EOMI, MMM
Respiratory: Clear to Auscultation bilaterally
Cardiac: Normal S1/S2, Regular Rate and Rhythm
GI: Soft, Nontender, Nondistended, Normal Bowel Sounds
Extremities: No Clubbing, Cyanosis, or Edema
Neuro: Nonfocal/Grossly Intact
Anticipated Discharge: 24 - 48 hours
Subjective/Interval History
-
Date of Service: June 13, 2024
No acute events. Reports nasal congestion. No shortness of breath, no fever, no vomiting.
Objective Data
-
Vital Signs:
Vital Signs
Temp Pulse Resp BP Pulse Ox
97.7 F 69 16 168/86 100
06/13/24 08:43 06/13/24 09:35 06/13/24 08:43 06/13/24 09:35 06/13/24 08:43
I&O
06/12/24 06/13/24 06/14/24
06:59 06:59 06:59
Intake Total 840 / 840 1540 / 1540
Balance 840 / 840 1540 / 1540
[2024-06-14 08:24] LABS: Glucose - Point of Care 127 mg/dl (70-99)
[2024-06-14] MEDS: NOVOLOG FLEXPEN-LOW RESISTANCE SC ×2 (08:26→12:22)
[2024-06-14] MEDS: ALTACE 5 MG PO (08:28)
[2024-06-14] MEDS: NOVOLOG FLEXPEN 3 UNITS SC ×3 (08:28→17:17)
[2024-06-14] MEDS: DEPAKOTE (12 HR RELEASE) 500 MG PO ×2 (08:29→19:57)
[2024-06-14] MEDS: VITAMIN D3 (cholecalciferol) 50 MCG PO (08:29)
[2024-06-14] MEDS: VITAMIN B-12 1000 MCG PO (08:29)
[2024-06-14] MEDS: PROTONIX 40 MG PO (08:29)
[2024-06-14] MEDS: TEGRETOL XR (EXTENDED RELEASE) 300 MG PO ×2 (08:29→19:57)
[2024-06-14 11:44] LABS: Glucose - Point of Care 134 mg/dl (70-99)
[2024-06-14 15:20] VITALS: BP 108/63
[2024-06-14 17:05] LABS: Glucose - Point of Care 252 mg/dl (70-99)
[2024-06-14] MEDS: LOVENOX 40 MG SC (17:16)
[2024-06-14] MEDS: NOVOLOG FLEXPEN-LOW RESISTANCE 3 UNITS SC (17:16)
[2024-06-14] MEDS: GLUCOPHAGE XR EXTENDED RELEASE 1000 MG PO (17:16)
[2024-06-14 21:31] LABS: Glucose - Point of Care 203 mg/dl (70-99)
[2024-06-14] MEDS: LANTUS 0.08 UNITS SC (21:48)
[2024-06-14] MEDS: CRESTOR 20 MG PO (21:48)
[2024-06-14] MEDS: ONFI 10 MG PO (21:49)
[2024-06-14 22:53] VITALS: BP 110/73
[2024-06-15 07:15] VITALS: BP 167/72
[2024-06-15 07:28] LABS: Glucose - Point of Care 140 mg/dl (70-99)
[2024-06-15] MEDS: NOVOLOG FLEXPEN-LOW RESISTANCE SC ×2 (07:51→17:00)
[2024-06-15] MEDS: ALTACE 5 MG PO (08:39)
[2024-06-15] MEDS: PROTONIX 40 MG PO (08:39)
[2024-06-15] MEDS: TEGRETOL XR (EXTENDED RELEASE) 300 MG PO ×2 (08:39→20:37)
[2024-06-15] MEDS: VITAMIN D3 (cholecalciferol) 50 MCG PO (08:39)
[2024-06-15] MEDS: DEPAKOTE (12 HR RELEASE) 500 MG PO ×2 (08:39→20:37)
[2024-06-15] MEDS: VITAMIN B-12 1000 MCG PO (08:40)
[2024-06-15] MEDS: NOVOLOG FLEXPEN 3 UNITS SC ×3 (08:40→17:10)
[2024-06-15 10:07] VITALS: BP 150/73
[2024-06-15 12:06] LABS: Glucose - Point of Care 232 mg/dl (70-99)
[2024-06-15] MEDS: NOVOLOG FLEXPEN-LOW RESISTANCE 2 UNITS SC (13:01)
[2024-06-15 13:05] VITALS: BP 145/65
[2024-06-15 13:15] VITALS: BP 145/65; PULSE 67; O2SAT 96
--- NOTE | 2024-06-15 13:48 | CM ---
Discharge Plan of Care: Recommended for SNF. [facility] accepted. requires insurance auth. Availity form completed and records faxed to [facility] on 06/12/24. Patient PASRR triggered a level II. Documents and PASRR faxed to [facility] on 06/12/24.
Called today to confirm receipt. Shana at [facility] said they only received 10 pages. Refaxed documentation today. Awaiting evaluation from [facility] and insurance auth.
--- NOTE | 2024-06-15 14:34 | W.PN.HOSP.TC ---
Today's Communication/Plan
-
Stable respiratory status
Blood glucose improved with adjustment of insulin
Medically optimized for placement pending bed availability.
Assessment / Plan
Assessment / Plan
Impression:
Admitted for ambulatory dysfunction, falls, reported dizziness secondary to COVID infection.
COVID infection mild, with no evidence of sepsis or hypoxia.
Hyponatremia sodium 131
Conditions prior to admission.
Cerebral palsy with intellectual disability
Seizure disorder
Essential hypertension.
Chronic kidney disease stage IIIb.
IDDM.
Hyperlipidemia
Plan:
Failure to thrive due to acute COVID infection
Mild COVID diagnosed on 06/08.
No clinical evidence of sepsis or hypoxia
No clear indication for antiviral therapy at this point.
Continue supportive care, isolate through 06/17
Mild hyponatremia secondary to dehydration due to decreased p.o. intake
Sodium improves 131�133
Monitor oral intake
Wean off IV fluids if sufficient
Follow BMP
Type 2 diabetes
-Continue insulin sliding scale
-Increased Lantus from 6 units to 8 units at bedtime, started Premeal insulin 3 units AC 3 times daily
Cerebral palsy
Seizure history
-Continue Depakote, carbamazepine, clobazam
Essential hypertension
-Continue ramipril
Hypercholesterolemia
-Continue statin
GERD
-Continue omeprazole
CKD 3
-Renal function at baseline
Chronic anemia
-Hemoglobin stable
DVT prophylaxis�SC lovenox
Full Code
Disposition: Physical therapy assessment recommend shelter rehab with likely transition to long-term care. Psychiatry evaluation for PASRR level II
Total time spent to see the patient on the floor, examine the patient, review data and lab results, discuss treatment plan with patient, nursing staff around 36 minutes.
Anticipated Discharge: 24 - 48 hours
Subjective/Interval History
-
Date of Service: June 15, 2024
Objective Data
-
Vital Signs:
Vital Signs
Temp Pulse Resp BP Pulse Ox
97.6 F 76 18 145/65 98
06/15/24 07:15 06/15/24 07:15 06/15/24 07:15 06/15/24 13:05 06/15/24 09:01
I&O
06/14/24 06/15/24 06/16/24
06:59 06:59 06:59
Intake Total 1080 / 1080 1979
Balance 1080 / 1080 1979
Physical Exam
-
General: Well Developed and No Apparent Distress
HEENT: Normocephalic, Atraumatic and Moist Mucous Membranes
Respiratory: Clear to Auscultation
Cardiac: Regular Rhythm and S1/S2; Negative Murmur, Rub or Gallop
GI: Soft, Nontender, Nondistended and Normal Bowel Sounds; Negative Organomegaly
Rectal: Deferred by Provider
Musculoskeletal: No Clubbing, No Cyanosis and No Edema
Skin: Negative Rash
Neuro: Nonfocal/Grossly Intact
[2024-06-15 15:15] VITALS: BP 149/85
[2024-06-15 16:58] LABS: Glucose - Point of Care 149 mg/dl (70-99)
[2024-06-15] MEDS: LOVENOX 40 MG SC (17:10)
[2024-06-15] MEDS: GLUCOPHAGE XR EXTENDED RELEASE 1000 MG PO (17:10)
[2024-06-15] MEDS: CRESTOR 20 MG PO (21:42)
[2024-06-15] MEDS: ONFI 10 MG PO (21:42)
[2024-06-15] MEDS: LANTUS 0.08 UNITS SC (21:43)
[2024-06-15 21:48] LABS: Glucose - Point of Care 158 mg/dl (70-99)
[2024-06-15 23:05] VITALS: BP 133/75
[2024-06-16 00:10] VITALS: BP 116/78; BP 126/74; BP 84/52; PULSE 68; PULSE 78; PULSE 82
[2024-06-16 07:20] VITALS: BP 133/77; BP 138/90; BP 139/76; PULSE 70; PULSE 74; PULSE 96
[2024-06-16 07:50] LABS: Glucose - Point of Care 126 mg/dl (70-99)
[2024-06-16] MEDS: NOVOLOG FLEXPEN-LOW RESISTANCE SC (07:54)
[2024-06-16] MEDS: TEGRETOL XR (EXTENDED RELEASE) 300 MG PO ×2 (07:57→21:34)
[2024-06-16] MEDS: NOVOLOG FLEXPEN 3 UNITS SC ×3 (07:57→17:27)
[2024-06-16] MEDS: ALTACE 5 MG PO (07:57)
[2024-06-16] MEDS: VITAMIN D3 (cholecalciferol) 50 MCG PO (07:57)
[2024-06-16] MEDS: VITAMIN B-12 1000 MCG PO (07:57)
[2024-06-16] MEDS: PROTONIX 40 MG PO (07:58)
[2024-06-16] MEDS: DEPAKOTE (12 HR RELEASE) 500 MG PO ×2 (07:58→21:35)
[2024-06-16 08:30] VITALS: BP 133/77; BP 138/90; BP 139/76; PULSE 70; PULSE 74; PULSE 96
[2024-06-16] MEDS: NOVOLOG FLEXPEN-LOW RESISTANCE 3 UNITS SC (13:16)
[2024-06-16 13:17] LABS: Glucose - Point of Care 251 mg/dl (70-99)
--- NOTE | 2024-06-16 15:13 | CM ---
Contact with Brenda at [facility] @ [phone]. [facility] needs additional information and will send forms to be completed via e-mail. Patient has been accepted to [facility] and triggered Level II PASRR. Also will need insurance auth. Placed in
Availity and records faxed.
[2024-06-16 15:57] VITALS: BP 122/67
[2024-06-16 17:21] LABS: Glucose - Point of Care 175 mg/dl (70-99)
[2024-06-16] MEDS: NOVOLOG FLEXPEN-LOW RESISTANCE 1 UNITS SC (17:26)
[2024-06-16] MEDS: GLUCOPHAGE XR EXTENDED RELEASE 1000 MG PO (17:26)
--- NOTE | 2024-06-16 17:29 | W.PN.HOSP.TC ---
Today's Communication/Plan
-
Medically optimized for long-term placement.
Assessment / Plan
Assessment / Plan
Impression:
Admitted for ambulatory dysfunction, falls, reported dizziness secondary to COVID infection.
COVID infection mild, with no evidence of sepsis or hypoxia.
Hyponatremia sodium 131
Conditions prior to admission.
Cerebral palsy with intellectual disability
Seizure disorder
Essential hypertension.
Chronic kidney disease stage IIIb.
IDDM.
Hyperlipidemia
Plan:
Failure to thrive due to acute COVID infection
Mild COVID diagnosed on 06/08.
No clinical evidence of sepsis or hypoxia
No clear indication for antiviral therapy at this point.
Continue supportive care, isolate through 06/17
Mild hyponatremia secondary to dehydration due to decreased p.o. intake
Sodium improves 131�133
Monitor oral intake
Wean off IV fluids if sufficient
Follow BMP
Type 2 diabetes
-Continue insulin sliding scale
-Increased Lantus from 6 units to 8 units at bedtime, started Premeal insulin 3 units AC 3 times daily
Cerebral palsy
Seizure history
-Continue Depakote, carbamazepine, clobazam
Essential hypertension
-Continue ramipril
Hypercholesterolemia
-Continue statin
GERD
-Continue omeprazole
CKD 3
-Renal function at baseline
Chronic anemia
-Hemoglobin stable
DVT prophylaxis�SC lovenox
Full Code
Disposition: Physical therapy assessment recommend long-term rehab with likely transition to long-term care. Psychiatry evaluation for PASRR level II
Anticipated Discharge: 24 - 48 hours
Subjective/Interval History
-
Date of Service: June 16, 2024
Objective Data
-
Vital Signs:
Vital Signs
Temp Pulse Resp BP Pulse Ox
97.3 F 68 16 122/67 98
06/16/24 15:57 06/16/24 15:57 06/16/24 15:57 06/16/24 15:57 06/16/24 15:57
I&O
06/15/24 06/16/24 06/17/24
06:59 06:59 06:59
Intake Total 1979
Balance 1979
Physical Exam
-
General: Well Developed and No Apparent Distress
HEENT: Normocephalic, Atraumatic and Moist Mucous Membranes
Respiratory: Clear to Auscultation
Cardiac: Regular Rhythm and S1/S2; Negative Murmur, Rub or Gallop
GI: Soft, Nontender, Nondistended and Normal Bowel Sounds; Negative Organomegaly
Rectal: Deferred by Provider
Musculoskeletal: No Clubbing, No Cyanosis and No Edema
Skin: Negative Rash
Neuro: Nonfocal/Grossly Intact
[2024-06-16] MEDS: LOVENOX 40 MG SC (17:30)
[2024-06-16 21:31] LABS: Glucose - Point of Care 191 mg/dl (70-99)
[2024-06-16] MEDS: CRESTOR 20 MG PO (21:38)
[2024-06-16] MEDS: ONFI 10 MG PO (21:38)
[2024-06-16] MEDS: LANTUS 0.08 UNITS SC (21:39)
[2024-06-16 23:34] VITALS: BP 134/61
[2024-06-17 00:10] VITALS: BP 116/78; BP 126/74; BP 82/52; PULSE 68; PULSE 76; PULSE 82
--- NOTE | 2024-06-17 03:08 | DOWNTIME ---
There was a [employer] Downtime on 06/17/2024 from 0100 to 06/17/2024 at 0252. Downtime documentation of patient's care, including medication administrations, has been reconciled in the electronic record per guidelines. Refer to the
patient's paper chart under the miscellaneous tab to see printed paper medication records and downtime forms.
[2024-06-17 07:20] VITALS: BP 135/62
[2024-06-17 07:40] LABS: Glucose - Point of Care 87 mg/dl (70-99)
[2024-06-17] MEDS: NOVOLOG FLEXPEN-LOW RESISTANCE SC ×2 (08:08→17:44)
[2024-06-17] MEDS: ALTACE 5 MG PO (08:55)
[2024-06-17] MEDS: VITAMIN D3 (cholecalciferol) 50 MCG PO (08:55)
[2024-06-17] MEDS: DEPAKOTE (12 HR RELEASE) 500 MG PO ×2 (08:55→20:47)
[2024-06-17] MEDS: TEGRETOL XR (EXTENDED RELEASE) 300 MG PO ×2 (08:55→20:47)
[2024-06-17] MEDS: PROTONIX 40 MG PO (08:55)
[2024-06-17] MEDS: NOVOLOG FLEXPEN 3 UNITS SC ×3 (08:55→17:45)
[2024-06-17] MEDS: VITAMIN B-12 1000 MCG PO (08:55)
[2024-06-17 09:43] VITALS: BP 137/95
[2024-06-17 12:38] LABS: Glucose - Point of Care 247 mg/dl (70-99)
[2024-06-17] MEDS: NOVOLOG FLEXPEN-LOW RESISTANCE 2 UNITS SC (12:38)
--- NOTE | 2024-06-17 13:26 | W.PN.HOSP.TC ---
Today's Communication/Plan
-
Pending placement
Assessment / Plan
Assessment / Plan
Impression:
Admitted for ambulatory dysfunction, falls, reported dizziness secondary to COVID infection.
COVID infection mild, with no evidence of sepsis or hypoxia.
Hyponatremia sodium 131
Conditions prior to admission.
Cerebral palsy with intellectual disability
Seizure disorder
Essential hypertension.
Chronic kidney disease stage IIIb.
IDDM.
Hyperlipidemia
Plan:
Failure to thrive due to acute COVID infection
Mild COVID diagnosed on 06/08.
No clinical evidence of sepsis or hypoxia
No clear indication for antiviral therapy at this point.
Continue supportive care, isolate through 06/17
Mild hyponatremia secondary to dehydration due to decreased p.o. intake
Sodium improves 131�133
Monitor oral intake
Wean off IV fluids if sufficient
Follow BMP
Type 2 diabetes
-Continue insulin sliding scale
-Increased Lantus from 6 units to 8 units at bedtime, started Premeal insulin 3 units AC 3 times daily
Cerebral palsy
Seizure history
-Continue Depakote, carbamazepine, clobazam
Essential hypertension
-Continue ramipril
Hypercholesterolemia
-Continue statin
GERD
-Continue omeprazole
CKD 3
-Renal function at baseline
Chronic anemia
-Hemoglobin stable
DVT prophylaxis�SC lovenox
Full Code
Disposition: Physical therapy assessment recommend [facility] rehab with likely transition to long-term care. Psychiatry evaluation for PASRR level II
Anticipated Discharge: 24 - 48 hours
Subjective/Interval History
-
Date of Service: June 17, 2024
Objective Data
-
Vital Signs:
Vital Signs
Temp Pulse Resp BP Pulse Ox
97.4 F 61 16 135/62 96
06/17/24 07:20 06/17/24 07:20 06/17/24 07:20 06/17/24 08:55 06/17/24 08:14
I&O
06/16/24 06/17/24 06/18/24
06:59 06:59 06:59
Intake Total 1680 / 1680 1380 / 1380
Balance 1680 / 1680 1380 / 1380
Physical Exam
-
General: Well Developed and No Apparent Distress
HEENT: Normocephalic, Atraumatic and Moist Mucous Membranes
Respiratory: Clear to Auscultation
Cardiac: Regular Rhythm and S1/S2; Negative Murmur, Rub or Gallop
GI: Soft, Nontender, Nondistended and Normal Bowel Sounds; Negative Organomegaly
Rectal: Deferred by Provider
Musculoskeletal: No Clubbing, No Cyanosis and No Edema
Skin: Negative Rash
Neuro: Nonfocal/Grossly Intact
--- NOTE | 2024-06-17 15:31 | CM ---
Additional documentation for [facility] Level II review completed. Attending and patient's brother signed required documents. Contact with Brenda at [facility] @ [phone]. She has requested documents be e-mailed to her at [email or web address].
Claim Manager to scan. Patient has been accepted to [facility]. Also will need insurance auth. Placed in Availity and records previously faxed.
[2024-06-17 15:56] VITALS: BP 105/74
[2024-06-17] MEDS: GLUCOPHAGE XR EXTENDED RELEASE 1000 MG PO (17:44)
[2024-06-17] MEDS: LOVENOX 40 MG SC (17:44)
[2024-06-17 17:45] LABS: Glucose - Point of Care 131 mg/dl (70-99)
[2024-06-17] MEDS: LANTUS 0.08 UNITS SC (21:15)
[2024-06-17 21:16] LABS: Glucose - Point of Care 273 mg/dl (70-99)
[2024-06-17] MEDS: ONFI 10 MG PO (22:14)
[2024-06-17] MEDS: CRESTOR 20 MG PO (22:15)
[2024-06-17 23:26] VITALS: BP 111/65
[2024-06-18 07:15] VITALS: BP 132/53
[2024-06-18 08:18] LABS: Glucose - Point of Care 160 mg/dl (70-99)
[2024-06-18] MEDS: DEPAKOTE (12 HR RELEASE) 500 MG PO ×2 (08:27→22:18)
[2024-06-18] MEDS: ALTACE 5 MG PO (08:27)
[2024-06-18] MEDS: PROTONIX 40 MG PO (08:27)
[2024-06-18] MEDS: VITAMIN D3 (cholecalciferol) 50 MCG PO (08:27)
[2024-06-18] MEDS: TEGRETOL XR (EXTENDED RELEASE) 300 MG PO ×2 (08:27→22:17)
[2024-06-18] MEDS: VITAMIN B-12 1000 MCG PO (08:27)
[2024-06-18] MEDS: NOVOLOG FLEXPEN-LOW RESISTANCE 1 UNITS SC (08:28)
[2024-06-18] MEDS: NOVOLOG FLEXPEN 3 UNITS SC ×3 (08:29→17:13)
--- NOTE | 2024-06-18 13:00 | CM ---
Addendum entered by Shelbie Eden 06/18/24 15:45:
Edna Ayers from [facility] will be at on Saturday06/19/24 at 9am.
Original Note:
Additional documentation for [facility] Level II has been scanned and e-mailed to Brenda at [employer] @ [phone], e-mail [email or web address]. Patient has been accepted to [facility]. Also will need insurance auth. Placed in Availity and records
previously faxed. Updated Max at [place] admissions. Max # [phone].
[2024-06-18 14:06] LABS: Glucose - Point of Care 202 mg/dl (70-99)
[2024-06-18] MEDS: NOVOLOG FLEXPEN-LOW RESISTANCE 2 UNITS SC (14:21)
--- NOTE | 2024-06-18 14:35 | W.PN.HOSP.TC ---
Today's Communication/Plan
-
Placement to group home facility.
Assessment / Plan
Assessment / Plan
Impression:
Admitted for ambulatory dysfunction, falls, reported dizziness secondary to COVID infection.
COVID infection mild, with no evidence of sepsis or hypoxia.
Hyponatremia sodium 131
Conditions prior to admission.
Cerebral palsy with intellectual disability
Seizure disorder
Essential hypertension.
Chronic kidney disease stage IIIb.
IDDM.
Hyperlipidemia
Plan:
Failure to thrive due to acute COVID infection
Mild COVID diagnosed on 06/08.
No clinical evidence of sepsis or hypoxia
No clear indication for antiviral therapy at this point.
Continue supportive care, isolate through 06/17
Mild hyponatremia secondary to dehydration due to decreased p.o. intake
Sodium improves 131�133
Monitor oral intake
Wean off IV fluids if sufficient
Follow BMP
Type 2 diabetes
-Continue insulin sliding scale
-Increased Lantus from 6 units to 8 units at bedtime, started Premeal insulin 3 units AC 3 times daily
Cerebral palsy
Seizure history
-Continue Depakote, carbamazepine, clobazam
Essential hypertension
-Continue ramipril
Hypercholesterolemia
-Continue statin
GERD
-Continue omeprazole
CKD 3
-Renal function at baseline
Chronic anemia
-Hemoglobin stable
DVT prophylaxis�SC lovenox
Full Code
Disposition: Physical therapy assessment recommend group home rehab with likely transition to long-term care. Psychiatry evaluation for PASRR level II
Anticipated Discharge: 24 - 48 hours
Subjective/Interval History
-
Date of Service: June 18, 2024
Objective Data
-
Vital Signs:
Vital Signs
Temp Pulse Resp BP Pulse Ox
97.4 F 67 18 132/53 100
06/18/24 07:15 06/18/24 07:15 06/18/24 07:15 06/18/24 07:15 06/18/24 07:15
I&O
06/17/24 06/18/24 06/19/24
06:59 06:59 06:59
Intake Total 1380 / 1380 1860 / 1860
Balance 1380 / 1380 1860 / 1860
Physical Exam
-
General: Well Developed and No Apparent Distress
HEENT: Normocephalic, Atraumatic and Moist Mucous Membranes
Respiratory: Clear to Auscultation
Cardiac: Regular Rhythm and S1/S2; Negative Murmur, Rub or Gallop
GI: Soft, Nontender, Nondistended and Normal Bowel Sounds; Negative Organomegaly
Rectal: Deferred by Provider
Musculoskeletal: No Clubbing, No Cyanosis and No Edema
Skin: Negative Rash
Neuro: Nonfocal/Grossly Intact
[2024-06-18 15:15] VITALS: BP 144/64; BP 149/64; BP 159/67; PULSE 73; PULSE 75; PULSE 87
[2024-06-18 17:00] LABS: Glucose - Point of Care 293 mg/dl (70-99)
[2024-06-18] MEDS: LOVENOX 40 MG SC (17:12)
[2024-06-18] MEDS: GLUCOPHAGE XR EXTENDED RELEASE 1000 MG PO (17:12)
[2024-06-18] MEDS: NOVOLOG FLEXPEN-LOW RESISTANCE 3 UNITS SC (17:12)
[2024-06-18] MEDS: ONFI 10 MG PO (22:18)
[2024-06-18] MEDS: CRESTOR 20 MG PO (22:18)
[2024-06-18 22:33] LABS: Glucose - Point of Care 184 mg/dl (70-99)
[2024-06-18] MEDS: LANTUS 0.08 UNITS SC (22:33)
[2024-06-18 23:35] VITALS: BP 109/64
[2024-06-19 07:40] VITALS: BP 112/76
[2024-06-19 07:57] LABS: Glucose - Point of Care 193 mg/dl (70-99)
[2024-06-19 08:55] VITALS: BP 115/71; PULSE 76; O2SAT 100
[2024-06-19] MEDS: NOVOLOG FLEXPEN 3 UNITS SC ×3 (09:51→16:41)
[2024-06-19] MEDS: NOVOLOG FLEXPEN-LOW RESISTANCE 1 UNITS SC (09:51)
[2024-06-19] MEDS: TEGRETOL XR (EXTENDED RELEASE) 300 MG PO ×2 (10:26→20:58)
[2024-06-19] MEDS: ALTACE 5 MG PO (10:27)
[2024-06-19] MEDS: VITAMIN D3 (cholecalciferol) 50 MCG PO (10:27)
[2024-06-19] MEDS: PROTONIX 40 MG PO (10:27)
[2024-06-19] MEDS: DEPAKOTE (12 HR RELEASE) 500 MG PO ×2 (10:27→20:58)
[2024-06-19] MEDS: VITAMIN B-12 1000 MCG PO (10:29)
[2024-06-19 12:01] LABS: Glucose - Point of Care 210 mg/dl (70-99)
[2024-06-19] MEDS: NOVOLOG FLEXPEN-LOW RESISTANCE 2 UNITS SC (12:01)
[2024-06-19 15:00] VITALS: BP 135/61
--- NOTE | 2024-06-19 15:26 | W.PN.HOSP.TC ---
Today's Communication/Plan
-
Pending long-term placement
Medically stable.
Assessment / Plan
Assessment / Plan
Impression:
Admitted for ambulatory dysfunction, falls, reported dizziness secondary to COVID infection.
COVID infection mild, with no evidence of sepsis or hypoxia.
Hyponatremia sodium 131
Conditions prior to admission.
Cerebral palsy with intellectual disability
Seizure disorder
Essential hypertension.
Chronic kidney disease stage IIIb.
IDDM.
Hyperlipidemia
Plan:
Failure to thrive due to acute COVID infection
Mild COVID diagnosed on 06/08.
No clinical evidence of sepsis or hypoxia
No clear indication for antiviral therapy at this point.
Continue supportive care, isolate through 06/17
Mild hyponatremia secondary to dehydration due to decreased p.o. intake
Sodium improves 131�133
Monitor oral intake
Wean off IV fluids if sufficient
Follow BMP
Type 2 diabetes
-Continue insulin sliding scale
-Increased Lantus from 6 units to 8 units at bedtime, started Premeal insulin 3 units AC 3 times daily
Cerebral palsy
Seizure history
-Continue Depakote, carbamazepine, clobazam
Essential hypertension
-Continue ramipril
Hypercholesterolemia
-Continue statin
GERD
-Continue omeprazole
CKD 3
-Renal function at baseline
Chronic anemia
-Hemoglobin stable
DVT prophylaxis�SC lovenox
Full Code
Disposition: Physical therapy assessment recommend snf rehab with likely transition to long-term care. Psychiatry evaluation for PASRR level II
Anticipated Discharge: 24 - 48 hours
Subjective/Interval History
-
Date of Service: June 19, 2024
Objective Data
-
Vital Signs:
Vital Signs
Temp Pulse Resp BP Pulse Ox
97.4 F 72 16 140/80 100
06/19/24 07:40 08/23/24 10:27 06/19/24 07:40 06/19/24 10:27 06/19/24 07:40
I&O
06/18/24 06/19/24 06/20/24
06:59 06:59 06:59
Intake Total 1859
Balance 1859
Physical Exam
-
General: Well Developed and No Apparent Distress
HEENT: Normocephalic, Atraumatic and Moist Mucous Membranes
Respiratory: Clear to Auscultation
Cardiac: Regular Rhythm and S1/S2; Negative Murmur, Rub or Gallop
GI: Soft, Nontender, Nondistended and Normal Bowel Sounds; Negative Organomegaly
Rectal: Deferred by Provider
Musculoskeletal: No Clubbing, No Cyanosis and No Edema
Skin: Negative Rash
Neuro: Nonfocal/Grossly Intact
--- NOTE | 2024-06-19 15:42 | CM ---
simon and trinity from [facility] visited with patient today and spoke with floor nurse.i spoke with rosalina who stated they have sent their info to the program [facility] and will be awaiting their response.states it could take a week.patient has been
accepted at [facility] and clinicals have been sent to [facility] for snf.Plan for snf after cleared by [facility].
[2024-06-19 16:39] LABS: Glucose - Point of Care 268 mg/dl (70-99)
[2024-06-19] MEDS: NOVOLOG FLEXPEN-LOW RESISTANCE 3 UNITS SC (16:40)
[2024-06-19] MEDS: LOVENOX 40 MG SC (17:58)
[2024-06-19] MEDS: GLUCOPHAGE XR EXTENDED RELEASE 1000 MG PO (17:58)
[2024-06-19 21:24] LABS: Glucose - Point of Care 162 mg/dl (70-99)
[2024-06-19] MEDS: CRESTOR 20 MG PO (21:29)
[2024-06-19] MEDS: LANTUS 0.08 UNITS SC (21:29)
[2024-06-19] MEDS: ONFI 10 MG PO (21:29)
[2024-06-19 23:24] VITALS: BP 96/58
[2024-06-20 05:06] VITALS: BP 104/70
[2024-06-20 06:09] VITALS: BMI 25.3
[2024-06-20 07:20] VITALS: BP 101/64; BP 137/63; BP 92/61; PULSE 65; PULSE 68; PULSE 83
[2024-06-20 07:34] LABS: Glucose - Point of Care 106 mg/dl (70-99)
[2024-06-20] MEDS: NOVOLOG FLEXPEN-LOW RESISTANCE SC (07:38)
[2024-06-20] MEDS: TEGRETOL XR (EXTENDED RELEASE) 300 MG PO ×2 (08:40→19:56)
[2024-06-20] MEDS: ALTACE 5 MG PO (08:40)
[2024-06-20] MEDS: VITAMIN D3 (cholecalciferol) 50 MCG PO (08:41)
[2024-06-20] MEDS: VITAMIN B-12 1000 MCG PO (08:41)
[2024-06-20] MEDS: DEPAKOTE (12 HR RELEASE) 500 MG PO ×2 (08:41→19:56)
[2024-06-20] MEDS: PROTONIX 40 MG PO (08:41)
[2024-06-20] MEDS: NOVOLOG FLEXPEN 3 UNITS SC ×3 (08:42→17:47)
--- NOTE | 2024-06-20 11:16 | W.PN.HOSP.TC ---
Today's Communication/Plan
-
medically stable pending SNF placement
Assessment / Plan
Assessment / Plan
Impression:
Admitted for ambulatory dysfunction, falls, reported dizziness secondary to COVID infection.
COVID infection mild, with no evidence of sepsis or hypoxia.
Hyponatremia sodium 131
Conditions prior to admission.
Cerebral palsy with intellectual disability
Seizure disorder
Essential hypertension.
Chronic kidney disease stage IIIb.
IDDM.
Hyperlipidemia
Plan:
Failure to thrive due to acute COVID infection
Mild COVID diagnosed on 06/08.
No clinical evidence of sepsis or hypoxia
No clear indication for antiviral therapy at this point.
Continue supportive care, now off isolation
Mild hyponatremia secondary to dehydration due to decreased p.o. intake
Sodium improves 131�133
Monitor oral intake
Wean off IV fluids if sufficient
Follow BMP
Type 2 diabetes
-Continue insulin sliding scale
-Increased Lantus from 6 units to 8 units at bedtime, started Premeal insulin 3 units AC 3 times daily
Cerebral palsy
Seizure history
-Continue Depakote, carbamazepine, clobazam
Essential hypertension
-Continue ramipril
Hypercholesterolemia
-Continue statin
GERD
-Continue omeprazole
CKD 3
-Renal function at baseline
Chronic anemia
-Hemoglobin stable
DVT prophylaxis�SC Lovenox
Full Code
Disposition: Physical therapy assessment recommend [facility] rehab with likely transition to long-term care. Psychiatry evaluation for PASRR level II
Anticipated Discharge: > 48 hours
Subjective/Interval History
-
Date of Service: June 20, 2024
resting comfortably
Objective Data
-
Vital Signs:
Vital Signs
Temp Pulse Resp BP Pulse Ox
97.4 F 65 16 137/63 98
06/20/24 07:20 06/20/24 08:40 06/20/24 07:20 06/20/24 08:40 06/20/24 07:20
I&O
06/19/24 06/20/24 06/21/24
06:59 06:59 06:59
Intake Total 2160 / 2160 900 / 900
Balance 2160 / 2160 900 / 900
Physical Exam
-
General: No Apparent Distress
HEENT: Normocephalic
Respiratory: Clear to Auscultation; Negative Wheezes or Rales
Cardiac: Regular Rhythm
GI: Soft
Genito-urinary: No Costovertebral Tender
Neuro: Awake
Psych: Calm
Data Reviewed
-
Total Time Spent with Patient (in minutes): 40
Labs: Labs Reviewed by me
[2024-06-20 12:47] LABS: Glucose - Point of Care 194 mg/dl (70-99)
[2024-06-20] MEDS: NOVOLOG FLEXPEN-LOW RESISTANCE 1 UNITS SC (13:21)
[2024-06-20 15:43] VITALS: BP 126/56
[2024-06-20] MEDS: GLUCOPHAGE XR EXTENDED RELEASE 1000 MG PO (17:06)
[2024-06-20] MEDS: LOVENOX 40 MG SC (17:06)
[2024-06-20 17:39] LABS: Glucose - Point of Care 280 mg/dl (70-99)
[2024-06-20] MEDS: NOVOLOG FLEXPEN-LOW RESISTANCE 3 UNITS SC (17:47)
[2024-06-20] MEDS: LANTUS 0.08 UNITS SC (23:17)
[2024-06-20] MEDS: CRESTOR 20 MG PO (23:17)
[2024-06-20] MEDS: ONFI 10 MG PO (23:17)
[2024-06-20 23:21] VITALS: BP 121/51
[2024-06-20 23:24] LABS: Glucose - Point of Care 141 mg/dl (70-99)
[2024-06-21 07:20] VITALS: BP 151/71
[2024-06-21 07:44] LABS: Glucose - Point of Care 110 mg/dl (70-99)
[2024-06-21] MEDS: PROTONIX 40 MG PO (07:47)
[2024-06-21] MEDS: TEGRETOL XR (EXTENDED RELEASE) 300 MG PO ×2 (07:47→22:51)
[2024-06-21] MEDS: VITAMIN B-12 1000 MCG PO (07:47)
[2024-06-21] MEDS: ALTACE 5 MG PO (07:47)
[2024-06-21] MEDS: VITAMIN D3 (cholecalciferol) 50 MCG PO (07:47)
[2024-06-21] MEDS: NOVOLOG FLEXPEN 3 UNITS SC ×3 (07:48→17:35)
[2024-06-21] MEDS: DEPAKOTE (12 HR RELEASE) 500 MG PO ×2 (07:49→22:55)
[2024-06-21] MEDS: NOVOLOG FLEXPEN-LOW RESISTANCE SC (07:49)
--- NOTE | 2024-06-21 08:04 | W.PN.HOSP.TC ---
Today's Communication/Plan
-
medically stable pending SNF placement
Assessment / Plan
Assessment / Plan
Impression:
Admitted for ambulatory dysfunction, falls, reported dizziness secondary to COVID infection.
COVID infection mild, with no evidence of sepsis or hypoxia.
Hyponatremia sodium 131
Conditions prior to admission.
Cerebral palsy with intellectual disability
Seizure disorder
Essential hypertension.
Chronic kidney disease stage IIIb.
IDDM.
Hyperlipidemia
Plan:
Failure to thrive due to acute COVID infection
Mild COVID diagnosed on 06/08.
No clinical evidence of sepsis or hypoxia
No clear indication for antiviral therapy at this point.
Continue supportive care, now off isolation
Mild hyponatremia secondary to dehydration due to decreased p.o. intake
Sodium improves 131�133
Monitor oral intake
Wean off IV fluids if sufficient
Follow BMP
Type 2 diabetes
-Continue insulin sliding scale
-Increased Lantus from 6 units to 8 units at bedtime, started Premeal insulin 3 units AC 3 times daily
Cerebral palsy
Seizure history
-Continue Depakote, carbamazepine, clobazam
Essential hypertension
-Continue ramipril
Hypercholesterolemia
-Continue statin
GERD
-Continue omeprazole
CKD 3
-Renal function at baseline
Chronic anemia
-Hemoglobin stable
DVT prophylaxis�SC Lovenox
Full Code
Disposition: Physical therapy assessment recommend [facility] with likely transition to long-term care. Psychiatry evaluation for PASRR level II
Anticipated Discharge: 24 - 48 hours
Subjective/Interval History
-
Date of Service: June 21, 2024
no complaints at present
Objective Data
-
Vital Signs:
Vital Signs
Temp Pulse Resp BP Pulse Ox
99.2 F 65 18 151/71 98
06/20/24 23:21 06/20/24 23:21 06/20/24 23:21 06/21/24 07:47 06/20/24 23:21
I&O
06/20/24 06/21/24 06/22/24
06:59 06:59 06:59
Intake Total 900 / 900 2160 / 2160
Balance 900 / 900 2160 / 2160
Physical Exam
-
General: No Apparent Distress
HEENT: Normocephalic
Respiratory: Negative Wheezes
Cardiac: Regular Rhythm and S1/S2
GI: Soft
Genito-urinary: No Costovertebral Tender
Neuro: AO x 3
Psych: Calm
Data Reviewed
-
Total Time Spent with Patient (in minutes): 41
Labs: Labs Reviewed by me
[2024-06-21 11:20] LABS: Glucose - Point of Care 237 mg/dl (70-99)
[2024-06-21] MEDS: NOVOLOG FLEXPEN-LOW RESISTANCE 2 UNITS SC (11:54)
--- NOTE | 2024-06-21 13:05 | CM ---
Patient resting in chair at this time. Awaiting confirmation of Level II letter and plan for transfer to [facility], when letter received. Patient will also need authorization. CM will continue to follow for discharge planning needs.
Plan;SNF pending level II and auth
--- NOTE | 2024-06-21 14:30 | PTCARENOTE ---
pt oob to chair with rolling walker. pt remains on medsitter, pt at times uses call light but can tend to yell out. pt no longer on covid precautions. per MD pt is stable for discharge. placement is main concern at this time.
[2024-06-21 15:49] VITALS: BP 129/65
[2024-06-21 17:30] LABS: Glucose - Point of Care 386 mg/dl (70-99)
[2024-06-21] MEDS: NOVOLOG FLEXPEN-LOW RESISTANCE 5 UNITS SC (17:35)
[2024-06-21] MEDS: GLUCOPHAGE XR EXTENDED RELEASE 1000 MG PO (17:36)
[2024-06-21] MEDS: LOVENOX 40 MG SC (17:36)
[2024-06-21 21:36] LABS: Glucose - Point of Care 310 mg/dl (70-99)
[2024-06-21] MEDS: ONFI 10 MG PO (22:51)
[2024-06-21] MEDS: CRESTOR 20 MG PO (22:51)
[2024-06-21] MEDS: LANTUS 0.08 UNITS SC (22:58)
[2024-06-21 23:31] VITALS: BP 116/60
[2024-06-22 07:15] VITALS: BP 131/69
[2024-06-22 08:04] LABS: Glucose - Point of Care 168 mg/dl (70-99)
[2024-06-22 08:07] LABS: Hematocrit 31.5 % (37.0-47.0); Hemoglobin 10.7 g/dL (12.0-16.0); Mean Corpuscular Volume 88.2 fL (81.0-99.0); Mean Platelet Volume 11.3 fL (7.4-10.4); Platelet Count 142 10^3/uL (130-400); Red Blood Cell Count 3.57 10^6/uL (4.20-5.40); White Blood Cell Count 7.6 10^3/uL (4.8-10.8)
[2024-06-22 08:55] LABS: Blood Urea Nitrogen 36 mg/dl (7-17); Carbon Dioxide 25 mmol/L (22-30); Chloride 96 mmol/L (98-107); Estimated Creatinine Clearance 46 ml/min; Glucose 134 mg/dl (70-99); Potassium 5.6 mmol/L (3.5-5.1); Sodium 133 mmol/L (135-145); eGFR > 60.00
[2024-06-22 08:59] VITALS: BP 129/68; PULSE 71; O2SAT 99
[2024-06-22] MEDS: NOVOLOG FLEXPEN 3 UNITS SC ×3 (10:12→17:08)
[2024-06-22] MEDS: ALTACE 5 MG PO (10:12)
[2024-06-22] MEDS: NOVOLOG FLEXPEN-LOW RESISTANCE 1 UNITS SC ×2 (10:12→17:08)
[2024-06-22] MEDS: VITAMIN B-12 1000 MCG PO (10:13)
[2024-06-22] MEDS: PROTONIX 40 MG PO (10:13)
[2024-06-22] MEDS: TEGRETOL XR (EXTENDED RELEASE) 300 MG PO ×2 (10:13→21:46)
[2024-06-22] MEDS: VITAMIN D3 (cholecalciferol) 50 MCG PO (10:13)
[2024-06-22] MEDS: DEPAKOTE (12 HR RELEASE) 500 MG PO ×2 (10:19→21:46)
[2024-06-22 11:45] LABS: Glucose - Point of Care 273 mg/dl (70-99)
[2024-06-22] MEDS: NOVOLOG FLEXPEN-LOW RESISTANCE 3 UNITS SC (11:51)
--- NOTE | 2024-06-22 13:37 | CM ---
CM folioing re: discharge planning.
Reviewed pt's chart. Per chart review. [facility] accepted the pt for a short term rehab once Letter of Determination regarding Level II PASRR evaluation is obtained.
Awaiting for Letter of Determination.
D/C plan: [facility] when Letter of Determination is obtained.
CM will follow to assist pt with discharge to [facility] for a short term rehabilitation.
--- NOTE | 2024-06-22 14:06 | W.PN.HOSP.TC ---
Today's Communication/Plan
-
Placement
Assessment / Plan
Assessment / Plan
Impression:
Admitted for ambulatory dysfunction, falls, reported dizziness secondary to COVID infection.
COVID infection mild, with no evidence of sepsis or hypoxia.
Hyponatremia sodium 131
Conditions prior to admission.
Cerebral palsy with intellectual disability
Seizure disorder
Essential hypertension.
Chronic kidney disease stage IIIb.
IDDM.
Hyperlipidemia
Plan:
Failure to thrive due to acute COVID infection
Mild COVID diagnosed on 06/08.
No clinical evidence of sepsis or hypoxia
No clear indication for antiviral therapy at this point.
Continue supportive care, now off isolation
Mild hyponatremia secondary to dehydration due to decreased p.o. intake
Sodium improves 131�133
Monitor oral intake
Wean off IV fluids if sufficient
Follow BMP
Type 2 diabetes
-Continue insulin sliding scale
-Increased Lantus from 6 units to 8 units at bedtime, started Premeal insulin 3 units AC 3 times daily
Cerebral palsy
Seizure history
-Continue Depakote, carbamazepine, clobazam
Essential hypertension
-Continue ramipril
Hypercholesterolemia
-Continue statin
GERD
-Continue omeprazole
CKD 3
-Renal function at baseline
Chronic anemia
-Hemoglobin stable
DVT prophylaxis�SC Lovenox
Full Code
Disposition: Physical therapy assessment recommend [facility] rehab with likely transition to long-term care. Psychiatry evaluation for PASRR level II
Anticipated Discharge: Within 24 hours
Subjective/Interval History
-
Date of Service: June 22, 2024
Objective Data
-
Labs:
Laboratory Results
06/22/24
07:42
WBC 7.6
Hgb 10.7 L
Hct 31.5 L
Plt Count 142
Sodium 133 L
Potassium 5.6 H
Chloride 96 L
Carbon Dioxide 25
BUN 36 H
Creatinine 1.0
Glucose 134 H
Calcium 9.0
Vital Signs:
Vital Signs
Temp Pulse Resp BP Pulse Ox
97.7 F 79 18 131/69 99
06/22/24 07:15 06/22/24 10:12 06/22/24 07:15 06/22/24 10:12 06/22/24 07:15
I&O
06/21/24 06/22/24 06/23/24
06:59 06:59 06:59
Intake Total 2160 / 2160 2880 / 2880
Balance 2160 / 2160 2880 / 2880
Physical Exam
-
General: No Apparent Distress
HEENT: Normocephalic
Respiratory: Negative Wheezes
Cardiac: Regular Rhythm and S1/S2
GI: Soft
Genito-urinary: No Costovertebral Tender
Neuro: AO x 3
Psych: Calm
[2024-06-22 15:20] VITALS: BP 116/55
[2024-06-22 17:01] LABS: Glucose - Point of Care 196 mg/dl (70-99)
[2024-06-22] MEDS: GLUCOPHAGE XR EXTENDED RELEASE 1000 MG PO (17:07)
[2024-06-22] MEDS: LOVENOX 40 MG SC (17:07)
--- NOTE | 2024-06-22 18:30 | PTCARENOTE ---
Patient's K on AM labs 5.6. made aware, verbal taken for repeat BMP in AM.
[2024-06-22 21:00] LABS: Glucose - Point of Care 261 mg/dl (70-99)
[2024-06-22] MEDS: ONFI 10 MG PO (21:46)
[2024-06-22] MEDS: CRESTOR 20 MG PO (21:46)
[2024-06-22] MEDS: LANTUS 0.08 UNITS SC (21:47)
[2024-06-22 23:16] VITALS: BP 122/52
[2024-06-23 07:15] VITALS: BP 148/67
[2024-06-23 07:33] LABS: Blood Urea Nitrogen 40 mg/dl (7-17); Calcium 8.4 mg/dl (8.4-10.2); Carbon Dioxide 26 mmol/L (22-30); Chloride 101 mmol/L (98-107); Estimated Creatinine Clearance 39 ml/min; Glucose 153 mg/dl (70-99); Potassium 5.4 mmol/L (3.5-5.1); Sodium 136 mmol/L (135-145); eGFR 52.14
[2024-06-23] MEDS: DEPAKOTE (12 HR RELEASE) 500 MG PO ×2 (07:44→21:13)
[2024-06-23] MEDS: PROTONIX 40 MG PO (07:44)
[2024-06-23] MEDS: VITAMIN D3 (cholecalciferol) 50 MCG PO (07:44)
[2024-06-23] MEDS: TEGRETOL XR (EXTENDED RELEASE) 300 MG PO ×2 (07:44→21:14)
[2024-06-23] MEDS: VITAMIN B-12 1000 MCG PO (07:44)
[2024-06-23] MEDS: ALTACE 5 MG PO (07:44)
[2024-06-23 07:47] LABS: Glucose - Point of Care 149 mg/dl (70-99)
[2024-06-23] MEDS: NOVOLOG FLEXPEN 3 UNITS SC (07:47)
[2024-06-23] MEDS: NOVOLOG FLEXPEN-LOW RESISTANCE SC (07:47)
--- NOTE | 2024-06-23 08:24 | PN.CDI ---
CDI
- -
CDI:
Physician Documentation Request
Admit Date: 06/18/24 14:34
Dear Doctor Kaushal,
Please review the following and provide your response in the progress notes.
Clinical Indicators:
- 06/19 RN skin assessment indicates Stage 1 sacrum pressure injury
Physician documentation of the type and location of wounds is required for compliant documentation. Based on the above clinical findings and your assessment, please provide the following in your progress note:
1. Location of the ulcer/wound, including laterality.
2. Type (etiology) of ulcer/wound:
- Diabetic ulcer
- Arterial (ischemic) ulcer
- Traumatic wound
- Venous stasis ulcer
- Pressure (decubitus) ulcer
- Non-healing surgical wound
- Other
- Unable to determine
Use of terms such as suspected, likely, concern for, or probable (associated with a specific diagnosis that is being evaluated, monitored, or treated as if it exists) are acceptable and can be coded in the inpatient setting, when documented at the
time of discharge.
Thank you,
Drew Parker RN
CDI Specialist
Please use your independent medical judgment in providing your response.
*Source: National Pressure Ulcer Advisory Panel (NPUAP)
[2024-06-23] MEDS: NORVASC 5 MG PO (10:28)
--- NOTE | 2024-06-23 10:36 | CM ---
CM continues to follow for transfer to [facility] for short term rehab; Await Letter of Determination for Level II PASRR which is required prior to discharge to SNF.
Plan: [facility] when Letter of Determination is received.
CM will follow to assist pt with discharge to [facility] for short term rehabilitation.
[2024-06-23] MEDS: NSS 1000 IV (11:24)
[2024-06-23 12:04] LABS: Glucose - Point of Care 374 mg/dl (70-99)
[2024-06-23] MEDS: NOVOLOG FLEXPEN-LOW RESISTANCE 5 UNITS SC (12:45)
[2024-06-23] MEDS: NOVOLOG FLEXPEN 4 UNITS SC ×2 (12:46→17:29)
[2024-06-23 13:04] VITALS: BP 131/75; PULSE 73; O2SAT 100
--- NOTE | 2024-06-23 13:38 | W.PN.HOSP.TC ---
Today's Communication/Plan
-
Stop SAMM inhibitor
Start Norvasc
IV fluids
Follow BMP for hyperkalemia
Adjust insulin dose for hyperglycemia.
Assessment / Plan
Assessment / Plan
Impression:
Admitted for ambulatory dysfunction, falls, reported dizziness secondary to COVID infection.
COVID infection mild, with no evidence of sepsis or hypoxia.
Hyponatremia sodium 131
CARLOS
Hyperkalemia
Conditions prior to admission.
Cerebral palsy with intellectual disability
Seizure disorder
Essential hypertension.
Chronic kidney disease stage IIIb.
IDDM.
Hyperlipidemia
Plan:
Failure to thrive due to acute COVID infection
Mild COVID diagnosed on 06/08.
No clinical evidence of sepsis or hypoxia
No clear indication for antiviral therapy at this point.
Continue supportive care, now off isolation
Mild hyponatremia secondary to dehydration due to decreased p.o. intake
Sodium improves 131�133�146
CARLOS
Hyperkalemia
Hold SAMM inhibitor.
IV fluids.
Follow BMP
Type 2 diabetes
-Continue insulin sliding scale
-Insulin dose being adjusted for hyperglycemia: Lantus 10 at bedtime/NovoLog for AC.
Cerebral palsy
Seizure history
-Continue Depakote, carbamazepine, clobazam
Essential hypertension
-Ramipril had been discontinued due to CARLOS with hyperkalemia
Initiated Norvasc.
Hypercholesterolemia
-Continue statin
GERD
-Continue omeprazole
CKD 3
-Renal function at baseline
Chronic anemia
-Hemoglobin stable
DVT prophylaxis�SC Lovenox
Full Code
Disposition: Physical therapy assessment recommend long-term rehab with likely transition to long-term care. Psychiatry evaluation for PASRR level II
Anticipated Discharge: 24 - 48 hours
Subjective/Interval History
-
Date of Service: June 23, 2024
Objective Data
-
Labs:
Laboratory Results
06/23/24
06:20
Sodium 136
Potassium 5.4 H
Chloride 101
Carbon Dioxide 26
BUN 40 H
Creatinine 1.2 H
Glucose 153 H
Calcium 8.4
Vital Signs:
Vital Signs
Temp Pulse Resp BP Pulse Ox
97.4 F 71 16 148/67 98
06/23/24 07:15 06/23/24 07:15 06/23/24 07:15 06/23/24 07:15 06/23/24 07:15
I&O
06/22/24 06/23/24 06/24/24
06:59 06:59 06:59
Intake Total 2880 / 2880 840 / 840
Balance 2880 / 2880 840 / 840
Physical Exam
-
General: No Apparent Distress
HEENT: Normocephalic
Respiratory: Negative Wheezes
Cardiac: Regular Rhythm and S1/S2
GI: Soft
Genito-urinary: No Costovertebral Tender
Neuro: AO x 3
Psych: Calm
[2024-06-23 15:43] VITALS: BP 115/49
[2024-06-23 16:57] LABS: Glucose - Point of Care 288 mg/dl (70-99)
[2024-06-23] MEDS: TYLENOL 650 MG PO (17:27)
[2024-06-23] MEDS: GLUCOPHAGE XR EXTENDED RELEASE 1000 MG PO (17:28)
[2024-06-23] MEDS: LOVENOX 40 MG SC (17:28)
[2024-06-23] MEDS: NOVOLOG FLEXPEN-LOW RESISTANCE 3 UNITS SC (17:29)
[2024-06-23] MEDS: CRESTOR 20 MG PO (21:13)
[2024-06-23] MEDS: ONFI 10 MG PO (21:13)
[2024-06-23 21:22] LABS: Glucose - Point of Care 177 mg/dl (70-99)
[2024-06-23] MEDS: LANTUS 0.1 UNITS SC (21:56)
[2024-06-23 23:09] VITALS: BP 99/49
[2024-06-24 06:00] VITALS: BMI 26.2
[2024-06-24 07:20] VITALS: BP 152/65
[2024-06-24 08:07] LABS: Glucose - Point of Care 124 mg/dl (70-99)
[2024-06-24 08:29] LABS: Blood Urea Nitrogen 32 mg/dl (7-17); Calcium 8.3 mg/dl (8.4-10.2); Carbon Dioxide 26 mmol/L (22-30); Chloride 106 mmol/L (98-107); Estimated Creatinine Clearance 47 ml/min; Glucose 117 mg/dl (70-99); Potassium 5.6 mmol/L (3.5-5.1); Sodium 137 mmol/L (135-145); eGFR > 60.00
[2024-06-24] MEDS: NOVOLOG FLEXPEN-LOW RESISTANCE SC ×2 (09:17→13:24)
[2024-06-24] MEDS: NOVOLOG FLEXPEN 4 UNITS SC (09:19)
[2024-06-24] MEDS: VITAMIN D3 (cholecalciferol) 50 MCG PO (09:20)
[2024-06-24] MEDS: TEGRETOL XR (EXTENDED RELEASE) 300 MG PO ×2 (09:20→20:17)
[2024-06-24] MEDS: VITAMIN B-12 1000 MCG PO (09:20)
[2024-06-24] MEDS: DEPAKOTE (12 HR RELEASE) 500 MG PO ×2 (09:20→20:17)
[2024-06-24] MEDS: PROTONIX 40 MG PO (09:20)
[2024-06-24] MEDS: NORVASC 5 MG PO (09:21)
[2024-06-24 12:03] LABS: Glucose - Point of Care 211 mg/dl (70-99)
[2024-06-24] MEDS: LOKELMA 10 GRAM PO (13:21)
[2024-06-24] MEDS: NOVOLOG FLEXPEN SC (13:24)
[2024-06-24] MEDS: NOVOLOG FLEXPEN-MODERATE RESISTANCE 3 UNITS SC (13:24)
--- NOTE | 2024-06-24 14:07 | PTCARENOTE ---
Patient's K 5.6 on morning labs. made aware, stat dose of lokelma ordered per MD and administered by this RN - see DEC.
[2024-06-24] MEDS: NOVOLOG FLEXPEN 6 UNITS SC ×2 (14:21→18:02)
[2024-06-24 15:40] VITALS: BP 117/56
--- NOTE | 2024-06-24 16:16 | CM ---
Level 2 determination received, [facility]iary appropriate.
Faxed to Max at [phone]
Max from [facility] updated.
[facility] NPI# [id number]
MD: Dr Aiden Moreno NPI# [id number]
Insurance auth initiated with [employer] via [employer], clinicals scanned.
Pended reference #[id number]
[facility]
Report# [phone]

Plan: skilled rehab once insurance auth obtained.
[2024-06-24 17:17] LABS: Glucose - Point of Care 169 mg/dl (70-99)
--- NOTE | 2024-06-24 17:48 | W.PN.HOSP.TC ---
Today's Communication/Plan
-
Treat hyperkalemia with Lokelma and IV fluids
Stop Lovenox
Mechanical DVT prophy
Adjust insulin dose for hyperglycemia
Follow BMP
Assessment / Plan
Assessment / Plan
Impression:
Admitted for ambulatory dysfunction, falls, reported dizziness secondary to COVID infection.
COVID infection mild, with no evidence of sepsis or hypoxia.
Hyponatremia sodium 131
CARLOS
Hyperkalemia
Conditions prior to admission.
Cerebral palsy with intellectual disability
Seizure disorder
Essential hypertension.
Chronic kidney disease stage IIIb.
IDDM.
Hyperlipidemia
Plan:
Failure to thrive due to acute COVID infection
Mild COVID diagnosed on 06/08.
No clinical evidence of sepsis or hypoxia
No clear indication for antiviral therapy at this point.
Continue supportive care, now off isolation
Mild hyponatremia secondary to dehydration due to decreased p.o. intake
Sodium improves 131�133�146
CARLOS
Hyperkalemia
Hold SAMM inhibitor.
IV fluids.
Lokelma provided on 06/24
Follow BMP
Type 2 diabetes
-Continue insulin sliding scale
-Insulin dose being adjusted for hyperglycemia: Lantus 14 at bedtime/NovoLog 6 AC.
Cerebral palsy
Seizure history
-Continue Depakote, carbamazepine, clobazam
Essential hypertension
-Ramipril had been discontinued due to CARLOS with hyperkalemia
Initiated Norvasc.
Hypercholesterolemia
-Continue statin
GERD
-Continue omeprazole
CKD 3
-Renal function at baseline
Chronic anemia
-Hemoglobin stable
DVT prophylaxis�Lovenox discontinued due to hyperkalemia. Mechanical DVT prophylaxis
Full Code
Disposition: Physical therapy assessment recommend [facility] rehab with likely transition to long-term care. Psychiatry evaluation for PASRR level II
Anticipated Discharge: 24 - 48 hours
Subjective/Interval History
-
Date of Service: June 24, 2024
Objective Data
-
Labs:
Laboratory Results
06/24/24
07:30
Sodium 137
Potassium 5.6 H
Chloride 106
Carbon Dioxide 26
BUN 32 H
Creatinine 1.0
Glucose 117 H
Calcium 8.3 L
Vital Signs:
Vital Signs
Temp Pulse Resp BP Pulse Ox
97.3 F 76 16 117/56 100
06/24/24 15:40 06/24/24 15:40 06/24/24 15:40 06/24/24 15:40 06/24/24 15:40
I&O
06/23/24 06/24/24 06/25/24
06:59 06:59 06:59
Intake Total 840 / 840 1560 / 1560
Balance 840 / 840 1560 / 1560
Physical Exam
-
General: No Apparent Distress
HEENT: Normocephalic
Respiratory: Negative Wheezes
Cardiac: Regular Rhythm and S1/S2
GI: Soft
Genito-urinary: No Costovertebral Tender
Neuro: AO x 3
Psych: Calm
[2024-06-24] MEDS: GLUCOPHAGE XR EXTENDED RELEASE 1000 MG PO (18:03)
[2024-06-24] MEDS: NOVOLOG FLEXPEN-MODERATE RESISTANCE 1 UNITS SC (18:03)
[2024-06-24] MEDS: ONFI 10 MG PO (21:30)
[2024-06-24] MEDS: CRESTOR 20 MG PO (21:30)
[2024-06-24] MEDS: LANTUS 0.14 UNITS SC (21:33)
[2024-06-24 21:34] LABS: Glucose - Point of Care 170 mg/dl (70-99)
[2024-06-24 22:43] VITALS: BP 132/64
[2024-06-25 07:15] VITALS: BP 138/64
[2024-06-25 07:27] LABS: Glucose - Point of Care 100 mg/dl (70-99)
[2024-06-25 07:33] LABS: Blood Urea Nitrogen 25 mg/dl (7-17); Calcium 8.1 mg/dl (8.4-10.2); Carbon Dioxide 29 mmol/L (22-30); Chloride 103 mmol/L (98-107); Estimated Creatinine Clearance 47 ml/min; Glucose 74 mg/dl (70-99); Potassium 4.9 mmol/L (3.5-5.1); Sodium 138 mmol/L (135-145); eGFR > 60.00
--- NOTE | 2024-06-25 07:34 | PN.CDI ---
CDI
- -
CDI:
Physician Documentation Request
Admit Date: 06/18/24 14:34
Dear Doctor Kaushal,
Please review the following and provide your response in the progress notes.
Clinical indicators:
- The diagnosis of CARLOS is documented in the record on 06/24 PN
- There is either a lack of clinical support for this condition in the current medical record, or there is a lack of recognized standard criteria to support the condition.
- 06/24 PN indicates CARLOS on CKD 3b
Laboratory Tests
06/10/24 06/11/24 06/12/24
20:31 10:37 07:13
Creatinine 1.2 H 1.0 1.0
eGFR 52.14 > 60.00 > 60.00
06/22/24 06/23/24 06/25/24
07:42 06:20 06:10
Creatinine 1.0 1.2 H 1.0
eGFR > 60.00 52.14 > 60.00
The request is for one of the following:
- CARLOS remains a known or suspected condition for this patient and is further supported by (include additional documentation in the medical record)
- Diagnosis CARLOS has been ruled out and a more appropriate diagnosis for this patient's condition is _CKD 3a___.
- Other (please specify)
Criteria for CARLOS*
1 Increase in serum creatinine by > or = to 0.3 mg/dL (> or = to 26.5 micromol/L) within 48 hours, OR
2 Increase in serum creatinine to > or = to 1.5 times baseline, which is known or presumed to have occurred within 7 days, OR
3 Urine volume < 0.5 nL/kg/hour for six hours
Stages of Chronic Kidney Disease*
Level Description GFR
G1 Normal or High >90
G2 Mildly decreased 60-89
G3a Mildly to moderately decreased 45-59
G3b Moderately to severely decreased 30-44
G4 Severely decreased 15-29
G5 Kidney failure <15
Use of terms such as suspected, likely, concern for, or probable (associated with a specific diagnosis that is being evaluated, monitored, or treated as if it exists) are acceptable and can be coded in the inpatient setting, when documented at the
time of discharge.
Thank you,
Drew Parker RN
CDI Specialist
Please use your independent medical judgment in providing your response.
[2024-06-25] MEDS: DEPAKOTE (12 HR RELEASE) 500 MG PO ×2 (08:02→20:03)
[2024-06-25] MEDS: VITAMIN B-12 1000 MCG PO (08:02)
[2024-06-25] MEDS: NOVOLOG FLEXPEN-MODERATE RESISTANCE SC ×2 (08:02→12:16)
[2024-06-25] MEDS: VITAMIN D3 (cholecalciferol) 50 MCG PO (08:02)
[2024-06-25] MEDS: TEGRETOL XR (EXTENDED RELEASE) 300 MG PO ×2 (08:02→20:03)
[2024-06-25] MEDS: PROTONIX 40 MG PO (08:02)
[2024-06-25] MEDS: NORVASC 5 MG PO (08:03)
[2024-06-25] MEDS: NOVOLOG FLEXPEN 6 UNITS SC ×2 (08:03→17:19)
[2024-06-25 12:11] LABS: Glucose - Point of Care 82 mg/dl (70-99)
[2024-06-25] MEDS: NOVOLOG FLEXPEN SC (12:27)
[2024-06-25] MEDS: NOVOLOG FLEXPEN 4 UNITS SC (13:05)
--- NOTE | 2024-06-25 13:39 | PTCARENOTE ---
Patient's lunch time blood sugar 82. This RN communicated with MD, 6 units scheduled insulin held and verbal order taken for 4 units novolog one time now - see MAR. Patient ate 100% of breakfast, states no complaints at this time.
--- NOTE | 2024-06-25 15:01 | W.PN.HOSP.TC ---
Today's Communication/Plan
-
Pending placement
Medically optimized
Assessment / Plan
Assessment / Plan
Impression:
Admitted for ambulatory dysfunction, falls, reported dizziness secondary to COVID infection.
COVID infection mild, with no evidence of sepsis or hypoxia.
Hyponatremia sodium 131
CARLOS
Hyperkalemia
Conditions prior to admission.
Cerebral palsy with intellectual disability
Seizure disorder
Essential hypertension.
Chronic kidney disease stage IIIb.
IDDM.
Hyperlipidemia
Plan:
Failure to thrive due to acute COVID infection
Mild COVID diagnosed on 06/08.
No clinical evidence of sepsis or hypoxia
No clear indication for antiviral therapy at this point.
Continue supportive care, now off isolation
Mild hyponatremia secondary to dehydration due to decreased p.o. intake
Sodium improves 131�133�146
CARLOS
Hyperkalemia
Improved with IV fluids and Lokelma
Follow BMP
Type 2 diabetes
-Continue insulin sliding scale
-Insulin dose being adjusted for hyperglycemia: Lantus 14 at bedtime/NovoLog 6 AC.
Cerebral palsy
Seizure history
-Continue Depakote, carbamazepine, clobazam
Essential hypertension
-Ramipril had been discontinued due to CARLOS with hyperkalemia
Initiated Norvasc.
Hypercholesterolemia
-Continue statin
GERD
-Continue omeprazole
CKD 3
-Renal function at baseline
Chronic anemia
-Hemoglobin stable
DVT prophylaxis�Lovenox discontinued due to hyperkalemia. Mechanical DVT prophylaxis
Full Code
Disposition: Physical therapy assessment recommend shelter rehab with likely transition to long-term care. Psychiatry evaluation for PASRR level II
Anticipated Discharge: 24 - 48 hours
Subjective/Interval History
-
Date of Service: June 25, 2024
Objective Data
-
Labs:
Laboratory Results
06/25/24
06:10
Sodium 138
Potassium 4.9
Chloride 103
Carbon Dioxide 29
BUN 25 H
Creatinine 1.0
Glucose 74
Calcium 8.1 L
Vital Signs:
Vital Signs
Temp Pulse Resp BP Pulse Ox
97.7 F 67 16 138/64 100
06/25/24 07:15 06/25/24 08:03 06/25/24 07:15 06/25/24 08:03 06/25/24 10:10
I&O
06/24/24 06/25/24 06/26/24
06:59 06:59 06:59
Intake Total 1560 / 1560 1200 / 1200
Balance 1560 / 1560 1200 / 1200
Physical Exam
-
General: No Apparent Distress
HEENT: Normocephalic
Respiratory: Negative Wheezes
Cardiac: Regular Rhythm and S1/S2
GI: Soft
Genito-urinary: No Costovertebral Tender
Neuro: AO x 3
Psych: Calm
[2024-06-25 15:10] VITALS: BP 117/60
--- NOTE | 2024-06-25 16:13 | CM ---
Patient seen at bedside today.
Authorization still pending today.
[facility] NPI# [id number]
MD: Dr Aiden Moreno NPI# [id number]
Insurance auth initiated with [employer] via [employer], clinicals scanned.
Pended reference #[id number]
[facility]
Report# [phone]

Plan: skilled rehab once insurance auth obtained.
[2024-06-25 17:19] LABS: Glucose - Point of Care 169 mg/dl (70-99)
[2024-06-25] MEDS: NOVOLOG FLEXPEN-MODERATE RESISTANCE 1 UNITS SC (17:19)
[2024-06-25] MEDS: GLUCOPHAGE XR EXTENDED RELEASE 1000 MG PO (17:19)
[2024-06-25 21:30] LABS: Glucose - Point of Care 259 mg/dl (70-99)
[2024-06-25] MEDS: CRESTOR 20 MG PO (22:13)
[2024-06-25] MEDS: ONFI 10 MG PO (22:13)
[2024-06-25] MEDS: LANTUS 0.14 UNITS SC (22:13)
[2024-06-25 23:03] VITALS: BP 160/81
[2024-06-26 07:15] VITALS: BP 157/75
[2024-06-26 07:19] LABS: Glucose - Point of Care 67 mg/dl (70-99)
[2024-06-26 08:10] LABS: Glucose - Point of Care 85 mg/dl (70-99)
[2024-06-26] MEDS: DEPAKOTE (12 HR RELEASE) 500 MG PO ×2 (08:15→20:35)
[2024-06-26] MEDS: VITAMIN D3 (cholecalciferol) 50 MCG PO (08:15)
[2024-06-26] MEDS: PROTONIX 40 MG PO (08:16)
[2024-06-26] MEDS: TEGRETOL XR (EXTENDED RELEASE) 300 MG PO ×2 (08:16→20:36)
[2024-06-26] MEDS: VITAMIN B-12 1000 MCG PO (08:16)
[2024-06-26] MEDS: NORVASC 5 MG PO (08:16)
[2024-06-26] MEDS: NOVOLOG FLEXPEN SC (08:19)
[2024-06-26] MEDS: NOVOLOG FLEXPEN-MODERATE RESISTANCE SC ×2 (08:19→18:02)
--- NOTE | 2024-06-26 09:47 | CM ---
Addendum entered by Dasha Avendano 06/26/24 13:13:
tt from regarding P2P for SNF. Per MD overturned & now approved.
telephone call to [facility] - case in pending status.
Await telephone call back [facility] for approval information.
Original Note:
CM received fax - denial from [employer].
tt Dr. Delmy Hubbard for P2P.
Await P2P
Spoke with Gladys bautista & ajer regarding this and possible altnerate plans.
Notified Max ramon from [facility].
PLAN: Await P2P
[2024-06-26 10:10] LABS: Glucose - Point of Care 189 mg/dl (70-99)
[2024-06-26 12:00] LABS: Glucose - Point of Care 221 mg/dl (70-99)
[2024-06-26] MEDS: NOVOLOG FLEXPEN 3 UNITS SC ×2 (12:41→18:07)
[2024-06-26] MEDS: NOVOLOG FLEXPEN-MODERATE RESISTANCE 3 UNITS SC (12:41)
--- NOTE | 2024-06-26 12:56 | PTCARENOTE ---
Pt hypoglycemic this AM at 67. 4oz of juice given and sugar rechecked at 15 minute francisca, sugar came up to 85. Blood sugar rechecked per protocol at Q2x2 karimi and came up to 189 ans 221, MD aware and medication regimen adjusted. No new orders at
this time.
--- NOTE | 2024-06-26 13:05 | W.DS.TRANS ---
DC Summary - Counterintelligence Specialist
-
Discharge Instructions:
Discharge Diagnosis/Procedures Impression:
Admitted for ambulatory dysfunction, falls,
reported dizziness secondary to COVID infection.
COVID infection mild, with no evidence of sepsis
or hypoxia.
Hyponatremia sodium 131
CARLOS
Hyperkalemia
Conditions prior to admission.
Cerebral palsy with intellectual disability
Seizure disorder
Essential hypertension.
Chronic kidney disease stage IIIb.
IDDM.
Hyperlipidemia
Instructions:
Stand-Alone Forms:
Changes to Home Medications: Yes
Discharge Medications:
DC Medications w/original date entered in [employer]
cholecalciferol (vitamin D3) 50 mcg (2,000 unit) tablet 2,000 units PO DAILY Supplement 02/06/20
omeprazole 20 mg capsule,delayed release 20 mg PO DAILY Gastrointestinal Issue 02/06/20
insulin degludec 100 unit/mL (3 mL) subcutaneous pen (Tresiba FlexTouch U-100 insulin) 6 unit SQ HS Diabetes 01/16/22
metformin 500 mg tablet,extended release 24 hr 1,000 mg PO QPM Diabetes 01/16/22
rosuvastatin 20 mg tablet 20 mg PO HS High Cholesterol 01/16/22
cyanocobalamin (vitamin B-12) 1,000 mcg tablet 1,000 mcg PO DAILY Supplement 04/27/23
divalproex 500 mg tablet,delayed release (Depakote) 500 mg PO BID Seizures 04/20/24
carbamazepine 300 mg capsule,extended release [id number] 300 mg PO BID Seizures 06/10/24
amlodipine 5 mg tablet 5 mg PO DAILY #30 tabs 06/26/24
clobazam 10 mg tablet (Onfi) 10 mg PO HS Seizures #14 tabs 06/26/24
insulin aspart U-100 100 unit/mL (3 mL) subcutaneous pen 3 unit (0.03 mL) SC AC #15 mL 06/26/24
Home Medication Changes
Ramipril stopped due to hyperkalemia
Amlodipine imitated
Insulin dose changed with increased of long-acting and addition of ac short acting
Pending Results: No
[2024-06-26 15:08] VITALS: BP 160/73
--- NOTE | 2024-06-26 15:38 | CM ---
Addendum entered by Kami Gerard 06/26/24 16:21:
TCB from [facility]
Patient approved skilled rehab
Reference #[id number]
approved 06/26/24 thru 07/08/24, NRD 07/09/24
updates to fax# [phone].
Addendum entered by Kami Gerard 06/26/24 15:51:
TCB from [facility] saying they do not have skilled denial overturned.
Radha is checking with her hospital medical assistant re appeal.
Await TCB.
Original Note:
TC to [facility] to check on skilled rehab authorization, (overturned and approved on appeal per hospital medical assistant)
per Jayne the auth is still pending.
Plan: transfer to Skilled rehab once auth received from [facility].
--- NOTE | 2024-06-26 16:38 | CM ---
IMM explained & signed by patient. CM also explained IMM to sister in law Gladys. Verbalizes understanding.
Authorization from [employer] received & will discharge tomorrow to [facility].
[place] liaison aware - CM to call him with time for transport.
tt to Dr. Easley to update.
PLAN: Discharge tomorrow to [facility].
[facility]
Report# [phone]
[2024-06-26 17:37] LABS: Glucose - Point of Care 86 mg/dl (70-99)
[2024-06-26] MEDS: GLUCOPHAGE XR EXTENDED RELEASE 1000 MG PO (18:07)
[2024-06-26 22:04] LABS: Glucose - Point of Care 240 mg/dl (70-99)
[2024-06-26] MEDS: CRESTOR 20 MG PO (22:28)
[2024-06-26] MEDS: LANTUS 0.1 UNITS SC (22:28)
[2024-06-26] MEDS: ONFI 10 MG PO (22:28)
[2024-06-26 23:10] VITALS: BP 135/68
[2024-06-27 07:20] VITALS: BP 135/62
[2024-06-27 07:46] LABS: Glucose - Point of Care 65 mg/dl (70-99)
[2024-06-27 08:04] LABS: Glucose - Point of Care 77 mg/dl (70-99)
[2024-06-27] MEDS: NOVOLOG FLEXPEN SC (08:11)
[2024-06-27] MEDS: TEGRETOL XR (EXTENDED RELEASE) 300 MG PO (08:12)
[2024-06-27] MEDS: PROTONIX 40 MG PO (08:12)
[2024-06-27] MEDS: VITAMIN D3 (cholecalciferol) 50 MCG PO (08:12)
[2024-06-27] MEDS: VITAMIN B-12 1000 MCG PO (08:12)
[2024-06-27] MEDS: NOVOLOG FLEXPEN-MODERATE RESISTANCE SC (08:12)
[2024-06-27] MEDS: NORVASC 5 MG PO (08:12)
[2024-06-27] MEDS: DEPAKOTE (12 HR RELEASE) 500 MG PO (08:12)
--- NOTE | 2024-06-27 09:58 | W.PN.HOSP.TC ---
Today's Communication/Plan
-
changed to ACEI
Insulin titration
bmp in 1 week
f/u with within 1 week
Assessment / Plan
Assessment / Plan
Impression:
Admitted for ambulatory dysfunction, falls, reported dizziness secondary to COVID infection.
COVID infection mild, with no evidence of sepsis or hypoxia.
Hyponatremia sodium 131
CARLOS
Hyperkalemia
Conditions prior to admission.
Cerebral palsy with intellectual disability
Seizure disorder
Essential hypertension.
Chronic kidney disease stage IIIb.
IDDM.
Hyperlipidemia
Plan:
Failure to thrive due to acute COVID infection
Mild COVID diagnosed on 06/08.
No clinical evidence of sepsis or hypoxia
No clear indication for antiviral therapy at this point.
Continue supportive care, now off isolation
Mild hyponatremia secondary to dehydration due to decreased p.o. intake
Sodium improves 131�133�146
Follow-up BMP outpatient
CARLOS
Hyperkalemia
Improved with IV fluids and Lokelma
Follow BMP outpatient within 1 week
Type 2 diabetes
-Continue insulin sliding scale
-Insulin dose being adjusted for hyperglycemia: Lantus 14 at bedtime/NovoLog 6 AC.
�Titrate as necessary outpatient
Cerebral palsy
Seizure history
-Continue Depakote, carbamazepine, clobazam
Essential hypertension
-Ramipril had been discontinued due to CARLOS with hyperkalemia
Initiated Norvasc.
Hypercholesterolemia
-Continue statin
GERD
-Continue omeprazole
CKD 3
-Renal function at baseline
Chronic anemia
-Hemoglobin stable
DVT ppx: Mechanical DVT prophylaxis; if remains here today, will start hsq
Full Code
Disposition: Physical therapy assessment recommend [facility] rehab with likely transition to long-term care. Psychiatry evaluation for PASRR level II
More than 30 minutes spent in discharge including
Final examination of the patient
Summarizing hospital stay
Instructions for continuing care to all relevant caregivers
Preparation of discharge records, prescriptions, and referral forms
Total time spent (35 in minutes):
Anticipated Discharge: Today
Subjective/Interval History
-
Date of Service: June 27, 2024
Sitting comfortably, no acute events
Objective Data
-
Vital Signs:
Vital Signs
Temp Pulse Resp BP Pulse Ox
98.2 F 68 17 135/62 96
06/27/24 07:20 06/27/24 08:12 06/27/24 07:20 06/27/24 08:12 06/27/24 07:20
I&O
06/26/24 06/27/24 06/28/24
06:59 06:59 06:59
Intake Total 1320 / 1320 1080 / 1080 360 / 360
Balance 1320 / 1320 1080 / 1080 360 / 360
Review of Systems
-
History Source: Patient
All other systems: Not reviewed unless documented
Data Reviewed
-
Total Time Spent with Patient (in minutes): 41
Labs: Labs Reviewed by me
--- NOTE | 2024-06-27 10:02 | W.DS.TRANS ---
DC Summary - Tax Clerk
-
Discharge Instructions:
Discharge Diagnosis/Procedures Impression:
Admitted for ambulatory dysfunction, falls,
reported dizziness secondary to COVID infection.
COVID infection mild, with no evidence of sepsis
or hypoxia.
Hyponatremia sodium 131
CARLOS
Hyperkalemia
Conditions prior to admission.
Cerebral palsy with intellectual disability
Seizure disorder
Essential hypertension.
Chronic kidney disease stage IIIb.
IDDM.
Hyperlipidemia
Blood Work bmp in 1 week
Instructions:
Stand-Alone Forms:
Changes to Home Medications: Yes
Discharge Medications:
DC Medications w/original date entered in [employer]
cholecalciferol (vitamin D3) 50 mcg (2,000 unit) tablet 2,000 units PO DAILY Supplement 02/06/20
omeprazole 20 mg capsule,delayed release 20 mg PO DAILY Gastrointestinal Issue 02/06/20
insulin degludec 100 unit/mL (3 mL) subcutaneous pen (Tresiba FlexTouch U-100 insulin) 6 unit SQ HS Diabetes 01/16/22
metformin 500 mg tablet,extended release 24 hr 1,000 mg PO QPM Diabetes 01/16/22
rosuvastatin 20 mg tablet 20 mg PO HS High Cholesterol 01/16/22
cyanocobalamin (vitamin B-12) 1,000 mcg tablet 1,000 mcg PO DAILY Supplement 04/27/23
divalproex 500 mg tablet,delayed release (Depakote) 500 mg PO BID Seizures 04/20/24
carbamazepine 300 mg capsule,extended release [id number] 300 mg PO BID Seizures 06/10/24
amlodipine 5 mg tablet 5 mg PO DAILY #30 tabs 06/26/24
clobazam 10 mg tablet (Onfi) 10 mg PO HS Seizures #14 tabs 06/26/24
insulin aspart U-100 100 unit/mL (3 mL) subcutaneous pen 3 unit (0.03 mL) SC AC #15 mL 06/26/24
Home Medication Changes
amlodipine 5 mg tablet 5 mg PO DAILY #30 tabs 06/26/24
insulin aspart U-100 100 unit/mL (3 mL) subcutaneous pen 3 unit (0.03 mL) SC AC #15 mL 06/26/24
Pending Results: No
--- NOTE | 2024-06-30 15:43 | CM ---
Call from [facility] [place] requesting PASSR be resent.
== END 2024-06-27 10:34 | DRG 178 ==
LOC: 2 NORTH 14:34
PROVIDERS: Clinical Nurse Specialist Family Health; Emergency Medicine; Internal Medicine; ADMITTING PHYSICIAN Hospitalist; ATTENDING PHYSICIAN Internal Medicine; CONSULT PHYSICIAN Psychiatry & Neurology Psychiatry; EMERGENCY PHYSICIAN Emergency Medicine; FAMILY PHYSICIAN Family Medicine
DX: U07.1 COVID-19 (principal); E87.1 Hypo-osmolality and hyponatremia; N17.9 Acute kidney failure, unspecified; R62.7 Adult failure to thrive; G80.9 Cerebral palsy, unspecified; G40.909 Epilepsy, unspecified, not intractable, without status epilepticus; F79 Unspecified intellectual disabilities; I12.9 Hypertensive chronic kidney disease with stage 1 through stage 4 chronic kidney disease, or unspecified chronic kidney disease; N18.32 Chronic kidney disease, stage 3b; E11.22 Type 2 diabetes mellitus with diabetic chronic kidney disease; E78.00 Pure hypercholesterolemia, unspecified; E87.5 Hyperkalemia; R29.6 Repeated falls; D63.1 Anemia in chronic kidney disease; E86.0 Dehydration; E11.40 Type 2 diabetes mellitus with diabetic neuropathy, unspecified; E11.65 Type 2 diabetes mellitus with hyperglycemia; E55.9 Vitamin D deficiency, unspecified; F03.90 Unspecified dementia, unspecified severity, without behavioral disturbance, psychotic disturbance, mood disturbance, and anxiety; K21.9 Gastro-esophageal reflux disease without esophagitis; L89.151 Pressure ulcer of sacral region, stage 1; Z79.4 Long term (current) use of insulin; Z88.8 Allergy status to other drugs, medicaments and biological substances; Z79.84 Long term (current) use of oral hypoglycemic drugs; Z79.899 Other long term (current) drug therapy; Z68.26 Body mass index [BMI] 26.0-26.9, adult
CPT/HCPCS: 80048; 80053; 81003; 82962; 83036; 85025; 85027; 86803; 87811; 96360; 97116; 97162; 97166; 97530; 97535; 99284

== ENCOUNTER 2025-03-05 06:25 | Day surgery (SDC) | payer MEDICARE, MEDICAID, SELFPAY ==
[2025-03-05 07:59] LABS: Glucose - Point of Care 226 mg/dl (70-99)
== END 2025-03-05 10:25 | disposition home or self-care (01) ==
LOC: GI 06:25
PROVIDERS: ATTENDING PHYSICIAN Internal Medicine Gastroenterology
DX: D12.3 Benign neoplasm of transverse colon (principal); K57.30 Diverticulosis of large intestine without perforation or abscess without bleeding; K31.7 Polyp of stomach and duodenum; D50.0 Iron deficiency anemia secondary to blood loss (chronic)
CPT/HCPCS: 45385; 43239; 88305; 82962

== ENCOUNTER 2025-04-22 08:46 | Outpatient (RCR) | payer MEDICARE, MEDICAID, OTHER, SELFPAY ==
[2025-04-22 09:00] VITALS: BP 142/56
[2025-04-22] MEDS: RECLAST 100 IV (09:17)
[2025-04-22 10:10] VITALS: BP 131/49
== END 2025-04-23 09:24 | disposition home or self-care (01) ==
LOC: OID 08:46
PROVIDERS: ATTENDING PHYSICIAN Internal Medicine Endocrinology, Diabetes & Metabolism; FAMILY PHYSICIAN Internal Medicine
DX: M81.0 Age-related osteoporosis without current pathological fracture (principal)
CPT/HCPCS: 96365; J3489